=== PATIENT | female | born 1990 | race Caucasian/White ===

== ENCOUNTER → 2019-04-25 | Outpatient (CLI) | payer BC ==
[2019-04-25 13:30] LABS: Basophils # (auto) 0 uL; Basophils % (auto) 0.6 % (0.0-2.0); Eosinophils # (auto) 0.1 uL; Eosinophils % (auto) 0.8 % (0.0-7.0); Hematocrit 38.5 % (36.0-46.0); Hemoglobin 13.3 g/dL (12.2-16.2); Lymphocytes # (auto) 2.2 uL; Lymphocytes % (auto) 34.6 % (10.0-50.0); Mean Corpuscular Hemoglobin 28.6 pg (28.0-32.0); Mean Corpuscular Hgb Conc. 34.5 g/dL (32.0-36.0); Mean Corpuscular Volume 82.8 fL (80.0-100.0); Monocytes # (auto) 0.3 uL; Neutrophils # (auto) 3.7 uL; Platelet Count (auto) 165 10^3/uL (140-450); Red Blood Cells 4.65 10^6/uL (4.0-5.20); Red Cell Distribution Width 12.9 % (11.8-14.3); White Blood Cell 6.3 10^3/uL (4.4-10.8)
[2019-04-25 13:44] LABS: Potassium 4.4 mmol/L (3.5-5.1)
[2019-04-25 13:48] LABS: Urine Bacteria NONE SEEN /hpf (None Seen); Urine Blood Negative /uL (Negative); Urine Mucus FEW (None Seen); Urine WBC 22 /hpf (0 - 5)
[2019-04-25 14:00] LABS: Albumin 3.8 g/dL (3.4-5.0); BUN/Creatinine Ratio 18.6; Bilirubin, Total 0.4 mg/dL (0.2-1.0); Calcium 8.4 mg/dL (8.5-10.1); Total Protein 7.2 g/dL (6.4-8.2)
[2019-04-25 14:12] LABS: Thyroid Stimulating Hormone 2.41 uIU/mL (0.358-3.74)
== END | disposition home or self-care (01) ==
LOC: LAB 12:08
PROVIDERS: ATTEND Internal Medicine
DX: E03.9 Hypothyroidism, unspecified (principal); R42 Dizziness and giddiness; Z33.1 Pregnant state, incidental
CPT/HCPCS: 36415; 80053; 81001; 84439; 84443; 84702; 85025; 85652

== ENCOUNTER → 2019-05-30 | Outpatient (CLI) | payer BC ==
[2019-05-30 11:27] LABS: Basophils # (auto) 0 uL; Basophils % (auto) 0.3 % (0.0-2.0); Eosinophils # (auto) 0 uL; Eosinophils % (auto) 0.6 % (0.0-7.0); Hemoglobin 13.7 g/dL (12.2-16.2); Lymphocytes # (auto) 1.8 uL; Lymphocytes % (auto) 27.9 % (10.0-50.0); Mean Corpuscular Hemoglobin 28.5 pg (28.0-32.0); Mean Corpuscular Hgb Conc. 33.3 g/dL (32.0-36.0); Mean Corpuscular Volume 85.6 fL (80.0-100.0); Monocytes # (auto) 0.3 uL; Monocytes % (auto) 4.8 % (0.0-12.0); Neutrophils # (auto) 4.3 uL; Neutrophils % (auto) 66.4 % (37.0-80.0); Nucleated Red Blood Cells % 0.1 %; Platelet Count (auto) 160 10^3/uL (140-450); Red Blood Cells 4.79 10^6/uL (4.0-5.20); Red Cell Distribution Width 13.7 % (11.8-14.3); White Blood Cell 6.5 10^3/uL (4.4-10.8)
[2019-05-30 12:08] LABS: Thyroid Stimulating Hormone 2.26 uIU/mL (0.358-3.74)
[2019-05-30 12:20] LABS: Alcohol, Urine < 3.0 mg/dL (0-5); Amphetamine Screen, Urine NEGATIVE (NEGATIVE); Barbiturate Scree,Urine NEGATIVE (NEGATIVE); Benzodiazephine Screen, Urine NEGATIVE (NEGATIVE); Cannabinoid Screen, Urine NEGATIVE (NEGATIVE); Cocaine Screen, Urine NEGATIVE (NEGATIVE); Opiate Scree,Urine NEGATIVE (NEGATIVE); Phencyclidine Screen, Urine NEGATIVE (NEGATIVE)
[2019-05-31 10:27] LABS: RPR Non Reactive (Non Reactive)
== END | disposition home or self-care (01) ==
LOC: LAB 10:13
PROVIDERS: ATTEND Specialist
DX: Z11.3 Encounter for screening for infections with a predominantly sexual mode of transmission (principal); Z31.430 Encounter of female for testing for genetic disease carrier status for procreative management; N39.0 Urinary tract infection, site not specified; Z34.83 Encounter for supervision of other normal pregnancy, third trimester
CPT/HCPCS: 36415; 80307; 81220; 83036; 84112; 84443; 84702; 85025; 86592; 86703; 86762; 86850; 86900; 86901; 87086; 87340

== ENCOUNTER → 2019-08-16 | Outpatient (CLI) | payer BC | END | disposition home or self-care (01) | LOC: LAB 09:55 | PROVIDERS: ATTEND Specialist | DX: Z34.00 Encounter for supervision of normal first pregnancy, unspecified trimester (principal); Z3A.00 Weeks of gestation of pregnancy not specified | CPT/HCPCS: 36415; 84443 ==

== ENCOUNTER → 2019-09-19 | Outpatient (CLI) | payer BC ==
[2019-09-19 08:33] LABS: Basophils # (auto) 0 uL; Basophils % (auto) 0.3 % (0.0-2.0); Eosinophils # (auto) 0 uL; Eosinophils % (auto) 0.4 % (0.0-7.0); Hematocrit 39.8 % (36.0-46.0); Hemoglobin 13.5 g/dL (12.2-16.2); Lymphocytes # (auto) 1.4 uL; Lymphocytes % (auto) 21.8 % (10.0-50.0); Mean Corpuscular Hemoglobin 30.2 pg (28.0-32.0); Monocytes # (auto) 0.4 uL; Monocytes % (auto) 5.9 % (0.0-12.0); Neutrophils # (auto) 4.6 uL; Neutrophils % (auto) 71.6 % (37.0-80.0); Platelet Count (auto) 157 10^3/uL (140-450); Red Blood Cells 4.47 10^6/uL (4.0-5.20); Red Cell Distribution Width 13.9 % (11.8-14.3); White Blood Cell 6.4 10^3/uL (4.4-10.8)
== END | disposition home or self-care (01) ==
LOC: LAB 08:07
PROVIDERS: ATTEND Specialist
DX: O99.810 Abnormal glucose complicating pregnancy (principal); Z3A.25 25 weeks gestation of pregnancy
CPT/HCPCS: 36415; 82951; 85025; 86850; 86900; 86901

== ENCOUNTER → 2019-11-08 | Outpatient (CLI) | payer BC | END | disposition home or self-care (01) | LOC: LAB 09:30 | PROVIDERS: ATTEND Specialist | DX: Z34.83 Encounter for supervision of other normal pregnancy, third trimester (principal); Z3A.34 34 weeks gestation of pregnancy | CPT/HCPCS: 36415; 84443 ==

== ENCOUNTER → 2019-11-29 | Outpatient (CLI) | payer BC ==
[~2019-11-29] MED LIST: LEVO50TA7 PO; PREN-145 OR
[2019-11-29 11:46] LABS: Basophils # (auto) 0 10 ^3/uL (0-0.2); Basophils % (auto) 0.3 % (0.0-2.0); Eosinophils # (auto) 0 10 ^3/uL (0-0.8); Eosinophils % (auto) 0.6 % (0.0-7.0); Hemoglobin 13.9 g/dL (12.2-16.2); Lymphocytes % (auto) 28.1 % (10.0-50.0); Mean Corpuscular Hemoglobin 30.3 pg (28.0-32.0); Mean Corpuscular Hgb Conc. 33.8 g/dL (32.0-36.0); Mean Corpuscular Volume 89.6 fL (80.0-100.0); Monocytes # (auto) 0.5 10 ^3/uL (0-1.3); Monocytes % (auto) 6.4 % (0.0-12.0); Neutrophils # (auto) 4.6 10 ^3/uL (1.6-8.6); Neutrophils % (auto) 64.6 % (37.0-80.0); Nucleated Red Blood Cells % 0.1 %; Platelet Count (auto) 131 10^3/uL (140-450); Red Blood Cells 4.58 10^6/uL (4.0-5.20); Red Cell Distribution Width 13.1 % (11.8-14.3); White Blood Cell 7.2 10^3/uL (4.4-10.8)
[2019-11-30 04:06] LABS: RPR Non Reactive (Non Reactive)
== END | disposition home or self-care (01) ==
LOC: LAB 11:32
PROVIDERS: ATTEND Specialist
DX: Z34.83 Encounter for supervision of other normal pregnancy, third trimester (principal); N76.0 Acute vaginitis; Z3A.36 36 weeks gestation of pregnancy
CPT/HCPCS: 36415; 84112; 85025; 86592; 87081

== ENCOUNTER 2019-11-30 13:22 | Observation (INO) | payer BC | END 2019-11-30 14:15 | disposition home or self-care (01) | DRG 833 | LOC: LDRP 13:22 | PROVIDERS: ADMIT Obstetrics & Gynecology; ATTEND Obstetrics & Gynecology | DX: O36.5930 Maternal care for other known or suspected poor fetal growth, third trimester, not applicable or unspecified (principal); Z3A.37 37 weeks gestation of pregnancy | CPT/HCPCS: 76818; G0378; 59025; 81002 ==

== ENCOUNTER 2019-12-04 14:51 | Observation (INO) | payer BC ==
[2019-12-04] MEDS ORDERED: PREN-145 OR (16:00)
[2019-12-04] MEDS ORDERED: LEVO50TA7 PO (16:00)
== END 2019-12-04 16:15 | disposition home or self-care (01) | DRG 833 ==
LOC: LDRP 14:51
PROVIDERS: ADMIT Obstetrics & Gynecology; ATTEND Obstetrics & Gynecology
DX: O36.5930 Maternal care for other known or suspected poor fetal growth, third trimester, not applicable or unspecified (principal); Z3A.37 37 weeks gestation of pregnancy
CPT/HCPCS: 59025; 76818; 81002; G0378

== ENCOUNTER 2019-12-07 14:51 | Observation (INO) | payer BC | END 2019-12-07 16:55 | disposition home or self-care (01) | DRG 833 | LOC: LDRP 14:51 | PROVIDERS: ADMIT Specialist; ATTEND Specialist | DX: O36.5930 Maternal care for other known or suspected poor fetal growth, third trimester, not applicable or unspecified (principal); Z3A.38 38 weeks gestation of pregnancy | CPT/HCPCS: 59025; 76818; 81002; G0378 ==

== ENCOUNTER 2019-12-11 14:42 | Observation (INO) | payer BC | END 2019-12-11 15:30 | disposition home or self-care (01) | DRG 833 | LOC: LDRP 14:42 | PROVIDERS: ADMIT Obstetrics & Gynecology; ATTEND Obstetrics & Gynecology | DX: O36.5930 Maternal care for other known or suspected poor fetal growth, third trimester, not applicable or unspecified (principal); Z3A.38 38 weeks gestation of pregnancy | CPT/HCPCS: 59025; 76818; 81002; G0378 ==

== ENCOUNTER 2019-12-13 07:00 | Inpatient (IN) | payer BC ==
[~2019-12-13] VITALS: Ht 162.6 cm; Wt 64.4 kg
[2019-12-13] MEDS ORDERED: LACT. RINGERS/OXYTOCIN 20UNITS 1,000 ML IV SCH (07:05)
[2019-12-13] MEDS ORDERED: DERMOPLAST 60ML BOTTLE TOP PRN (07:15)
[2019-12-13] MEDS ORDERED: LIDOCAINE 2%HCL (LOCAL ANESTH.) INJ 20ML MDV ID PRN (07:15)
[2019-12-13] MEDS ORDERED: METHYLERGONOVINE MALEATE 0.2 MG/ML AMP IM PRN (07:15)
[2019-12-13] MEDS ORDERED: PHISODERM TOP SOLN 240ML BTL TOP PRN (07:15)
[2019-12-13] MEDS ORDERED: WITCH HAZEL-GLYCERIN PAD TOP PRN (07:15)
[2019-12-13] MEDS ORDERED: miSOPROStol 50 MCG per PRE-CUT 1/2 TAB PO PRN (07:45)
[2019-12-13 07:48] LABS: Basophils # (auto) 0 10 ^3/uL (0-0.2); Basophils % (auto) 0.3 % (0.0-2.0); Eosinophils # (auto) 0 10 ^3/uL (0-0.8); Eosinophils % (auto) 0.6 % (0.0-7.0); Hematocrit 44.6 % (36.0-46.0); Hemoglobin 15.1 g/dL (12.2-16.2); Lymphocytes # (auto) 2.2 10 ^3/uL (0.4-5.4); Lymphocytes % (auto) 28.1 % (10.0-50.0); Mean Corpuscular Hemoglobin 30.6 pg (28.0-32.0); Mean Corpuscular Hgb Conc. 33.8 g/dL (32.0-36.0); Mean Corpuscular Volume 90.7 fL (80.0-100.0); Monocytes # (auto) 0.3 10 ^3/uL (0-1.3); Monocytes % (auto) 4.4 % (0.0-12.0); Neutrophils # (auto) 5.2 10 ^3/uL (1.6-8.6); Neutrophils % (auto) 66.6 % (37.0-80.0); Nucleated Red Blood Cells % 0.1 %; Platelet Count (auto) 157 10^3/uL (140-450); Red Blood Cells 4.92 10^6/uL (4.0-5.20); Red Cell Distribution Width 13.4 % (11.8-14.3); White Blood Cell 7.8 10^3/uL (4.4-10.8)
[2019-12-13 07:53] LABS: Urine Bacteria FEW /hpf (None Seen); Urine Blood Negative /uL (Negative); Urine Mucus FEW (None Seen); Urine WBC <1 /hpf (0 - 5)
[2019-12-13 08:01] LABS: INR 0.91 (0.9-1.15); Partial Thromboplastin Time 26.3 sec (23.64-32.05)
[2019-12-13 08:05] LABS: Calcium 8.8 mg/dL (8.5-10.1); Potassium 4.2 mmol/L (3.5-5.1)
[2019-12-13 08:08] LABS: Alcohol, Urine < 3.0 mg/dL (0-5); Amphetamine Screen, Urine NEGATIVE (NEGATIVE); Barbiturate Scree,Urine NEGATIVE (NEGATIVE); Benzodiazephine Screen, Urine NEGATIVE (NEGATIVE); Cannabinoid Screen, Urine NEGATIVE (NEGATIVE); Cocaine Screen, Urine NEGATIVE (NEGATIVE); Opiate Scree,Urine NEGATIVE (NEGATIVE); Phencyclidine Screen, Urine NEGATIVE (NEGATIVE)
[2019-12-13 08:08] LABS: BUN/Creatinine Ratio 15.1; Bilirubin, Total 0.4 mg/dL (0.2-1.0); Total Protein 7.4 g/dL (6.4-8.2)
[2019-12-13] MEDS: LACTATED RINGER'S 1,000 ML IV SCH ×2 (08:25→10:52)
[2019-12-13] MEDS ORDERED: LEVOTHYROXINE SODIUM 25 MCG TAB PO SCH (10:00)
[2019-12-13] MEDS ORDERED: LEVOTHYROXINE SODIUM 50 MCG TAB PO SCH (10:00)
[2019-12-13] MEDS ORDERED: ePHEDrine SULFATE 50 MG/ML AMP IV ONE ×2 (10:45→12:15)
[2019-12-13] MEDS ORDERED: LIDOCAINE HCL 2 %PF INJ 10ML AMP IJ ONE (10:45)
[2019-12-13] MEDS ORDERED: NALOXONE HCL 0.4 MG/ML VIAL IV ONE ×2 (10:45→12:15)
[2019-12-13] MEDS ORDERED: fentaNYL 200mCg/100ml W ROPIVA 100 ML EPI SCH ×2 (10:45→12:15)
[2019-12-13] MEDS ORDERED: fentaNYL CITRATE 100 MCG/2 ML VL IV ONE (10:45)
[2019-12-13] MEDS ORDERED: LACTATED RINGER'S 500 ML IV ONE (12:12)
[2019-12-13] MEDS ORDERED: SODIUM CHLORIDE 0.9% 500 ML IV PRN (12:12)
[2019-12-13] MEDS ORDERED: RHO (D) IMMUNE GLOBULIN 300 MCG INJ IM ONE (16:00)
[2019-12-13] MEDS ORDERED: ACETAMINOPHEN 325 MG TAB PO PRN (16:15)
--- NOTE | 2019-12-13 16:50 | NUR ---
Teaching: Reviewed information in [facility] booklet with patient. Discussed benefits of and risks associated with not . Discussed different positions, proper latch, feeding cues, and baby-led . Discussed using hospital breast pump to pump milk for infant during their time apart. Patient verbalizes understanding, Continued care.
--- NOTE | 2019-12-13 16:56 | NUR ---
[id number] [facility]. Answered any and all questions and concerns patient and spouse had.
--- NOTE | 2019-12-13 17:12 | NUR ---
Copy of PP depression scale provided to complete
[2019-12-13 17:39] VITALS: BP 112/61
--- NOTE | 2019-12-13 17:50 | NUR ---
Ambulation: Patient OOB with standby assistance by RN. Patient ambulated to bathroom with steady gait. Patient able to void without difficulty. [facility] teaching provided with returned demonstration by patient, patient voided 400 ml of urine. Clean gown provided and N95 mask provided and pt trasported to [facility] room 1 . Patient ambulated back to bed with steady gait and no distress noted.
[2019-12-13 19:00] VITALS: BP 105/62
[2019-12-13] MEDS ORDERED: diphenhdrAMINE HCL 25 MG CAP PO ONE (20:15)
[2019-12-13 23:00] VITALS: BP 107/54
[2019-12-14 03:28] VITALS: BP 91/51
[2019-12-14 06:07] LABS: RPR Non Reactive (Non Reactive)
[2019-12-14 07:00] VITALS: BP 100/59
[2019-12-14] MEDS ORDERED: LEVOTHYROXINE SODIUM 50 MCG TAB PO SCH (07:00)
[2019-12-14] MEDS: IBUPROFEN 600 MG TAB PO PRN ×2 (08:47→16:26)
[2019-12-14] MEDS ORDERED: TETANUS-DIPTH-ACEL PERTUSSIS 0.5ML SYR Tdap IM ONE (10:00)
[2019-12-14] MEDS ORDERED: MEASLES, MUMPS & RUBELLA VAC(MMRII) 0.5ML SC ONE (10:00)
[2019-12-14] MEDS ORDERED: DOCUSATE CALCIUM 240 MG CAP PO SCH (10:00)
[2019-12-14 11:09] VITALS: BP 119/75
--- NOTE | 2019-12-14 14:55 | NUR ---
Received positive COVID test for patient. Called Keyana Jeffrey Director of [facility]. Informed of second positive COVID test. Verbalized understanding. Stated to call flight simulator teacher. Laly Dill called. Informed of Covid results. Given patient name, medical record number, phone number [phone]. Informed patient is to be discharged home tonight, will be going home with grandmother to a separate house for two weeks for isolation. was swabbed for covid at 1530, sent to lab. Results to processed at 0800. Verbalized understanding. Stated to call Dr Medina to inform of positive result. Dr Medina called. Stated to have patient return for follow up appointment after a covid screening has come back negative, and if patient is nonsymptomatic. Jane Dill called. Informed of information. Stated she will contact Marlyn Camejo regarding Dr Medina's wishes. Informed patient's primary care physician is Dr Viktor King of medical group. Verbalized understanding. Stated to inform patient to self quarantine for 14 days, the hospital will be contacting the patient regarding when and where to have COVID rescreen and when to f/u with Dr medina. Patient will most likely go to urgent care for COVID rescreen. of patient needs to be encouraged to be screened for COVID as well. may go to the ER now to be screened in house.
[2019-12-14 15:00] VITALS: BP 103/63
--- NOTE | 2019-12-14 17:00 | NUR ---
IV in left forearm dc'd per policy. Patient tolerated well. Cath intact. Pressure dressing placed to site.
--- NOTE | 2019-12-14 18:00 | NUR ---
discharge paperwork reviewed with patient and significant other. Ana Villafana will call patient by Tuesday regarding when to return to urgent care for a follow up COVID screen. When the screen comes back negative, call Dr Herrera's office to schedule a follow up appointment no longer than four weeks after discharge. Educated on second positive test for COVID, reviewed and given home isolation instruction for novel coronavirus 2019. Verbalized understanding of all information. Educated on CDC's recommendation to isolate for 14 days from infant to reduce the risk of spreading covid to the . Encouraged FOB to screened for COVID. Appointment has been made for father of infant to be screened tomorrow in the urgent care in the am. Verbalized understanding. All questions and concerns addressed.
--- NOTE | 2019-12-14 19:06 | NUR ---
Discharge: Patient ambulated off unit with all personal belongings, discharge paperwork in hand accompanied by staff and family member. No distress noted at time of departure, no adverse changes in status since initial assessment.
== END 2019-12-14 19:05 | disposition home or self-care (01) | DRG 805 ==
LOC: OBSVTOIN 07:00 → LDRP 07:00
PROVIDERS: ADMIT Specialist; ATTEND Specialist
PROC: 10E0XZZ Delivery of Products of Conception, External Approach (ICD-10-PCS; principal; 2019-12-13)
PROC: 0W8NXZZ Division of Female Perineum, External Approach (ICD-10-PCS; 2019-12-13)
PROC: 3E0234Z Introduction of Serum, Toxoid and Vaccine into Muscle, Percutaneous Approach (ICD-10-PCS; 2019-12-13)
PROC: 3E0R3BZ Introduction of Anesthetic Agent into Spinal Canal, Percutaneous Approach (ICD-10-PCS; 2019-12-13)
PROC: 00HU33Z Insertion of Infusion Device into Spinal Canal, Percutaneous Approach (ICD-10-PCS; 2019-12-13)
DX: O36.5930 Maternal care for other known or suspected poor fetal growth, third trimester, not applicable or unspecified (principal); U07.1 COVID-19; Z37.0 Single live birth; O98.52 Other viral diseases complicating childbirth; O26.893 Other specified pregnancy related conditions, third trimester; Z67.21 Type B blood, Rh negative; Z3A.39 39 weeks gestation of pregnancy
CPT/HCPCS: 36415; 59025; 59409; 80053; 80307; 81001; 84112; 85025; 85610; 85730; 86592; 86850; 86900; 86901; 90384; 90471; 96365; 96366; 96372; G0378; J2590

== ENCOUNTER → 2019-12-31 | Outpatient (CLI) | payer BC | END | disposition home or self-care (01) | LOC: LAB 12:16 | PROVIDERS: ATTEND Physician Assistant | DX: Z03.818 Encounter for observation for suspected exposure to other biological agents ruled out (principal) | CPT/HCPCS: 87635 ==

== ENCOUNTER → 2020-11-20 | Outpatient (CLI) | payer BC ==
[2020-11-20 09:41] LABS: Basophils # (auto) 0 10 ^3/uL (0-0.2); Basophils % (auto) 0.6 % (0.0-2.0); Eosinophils # (auto) 0.1 10 ^3/uL (0-0.8); Hematocrit 40.6 % (36.0-46.0); Monocytes # (auto) 0.3 10 ^3/uL (0-1.3); Nucleated Red Blood Cells % 0.1 %
[2020-11-20 09:42] LABS: Urine Bacteria NONE SEEN /hpf (None Seen); Urine Blood 2+ /uL (Negative); Urine WBC 14 /hpf (0 - 5)
[2020-11-20 09:54] LABS: Eosinophils % (auto) 2.4 % (0.0-7.0); Hemoglobin 13.8 g/dL (12.2-16.2); Lymphocytes # (auto) 2.3 10 ^3/uL (0.4-5.4); Mean Corpuscular Hemoglobin 28.2 pg (28.0-32.0); Mean Corpuscular Volume 82.9 fL (80.0-100.0); Monocytes % (auto) 5.9 % (0.0-12.0); Neutrophils # (auto) 2.9 10 ^3/uL (1.6-8.6); Neutrophils % (auto) 51.1 % (37.0-80.0); Platelet Count (auto) 191 10^3/uL (140-450); Red Blood Cells 4.89 10^6/uL (4.0-5.20); Red Cell Distribution Width 12.6 % (11.8-14.3); White Blood Cell 5.6 10^3/uL (4.4-10.8)
[2020-11-20 10:27] LABS: Albumin 3.8 g/dL (3.4-5.0); Calcium 9.1 mg/dL (8.5-10.1); Potassium 4.3 mmol/L (3.5-5.1)
[2020-11-20 10:30] LABS: BUN/Creatinine Ratio 23.7; Bilirubin, Total 0.7 mg/dL (0.2-1.0); Total Protein 7.1 g/dL (6.4-8.2)
== END | disposition home or self-care (01) ==
LOC: LAB 09:20
PROVIDERS: ATTEND Internal Medicine
DX: K21.9 Gastro-esophageal reflux disease without esophagitis (principal); R07.89 Other chest pain
CPT/HCPCS: 36415; 80053; 81001; 82150; 83690; 84702; 85025; 85652; 86677

== ENCOUNTER 2021-06-14 18:24 | Emergency (ER) | payer BC ==
[~2021-06-14] VITALS: Ht 162.6 cm; Wt 57.2 kg
[2021-06-14 18:26] VITALS: BP 106/54
[2021-06-14 19:06] LABS: Basophils # (auto) 0 10 ^3/uL (0-0.2); Basophils % (auto) 0.4 % (0.0-2.0); Eosinophils # (auto) 0.1 10 ^3/uL (0-0.8); Eosinophils % (auto) 1.4 % (0.0-7.0); Hematocrit 41.2 % (36.0-46.0); Hemoglobin 13.4 g/dL (12.2-16.2); Lymphocytes # (auto) 2.6 10 ^3/uL (0.4-5.4); Lymphocytes % (auto) 38.6 % (10.0-50.0); Mean Corpuscular Hemoglobin 27.4 pg (28.0-32.0); Mean Corpuscular Hgb Conc. 32.6 g/dL (32.0-36.0); Monocytes # (auto) 0.4 10 ^3/uL (0-1.3); Monocytes % (auto) 5.6 % (0.0-12.0); Neutrophils # (auto) 3.6 10 ^3/uL (1.6-8.6); Red Blood Cells 4.91 10^6/uL (4.0-5.20); Red Cell Distribution Width 12.9 % (11.8-14.3); White Blood Cell 6.6 10^3/uL (4.4-10.8)
[2021-06-14 19:25] LABS: Albumin 3.8 g/dL (3.4-5.0); Calcium 9.2 mg/dL (8.5-10.1); Magnesium 2.5 mg/dL (1.6-2.6); Potassium 5.1 mmol/L (3.5-5.1)
[2021-06-14 19:26] LABS: Bilirubin, Total 0.3 mg/dL (0.2-1.0); Total Protein 7.1 g/dL (6.4-8.2)
[2021-06-14 21:26] LABS: Urine Bacteria FEW /hpf (None Seen); Urine Blood Negative /uL (Negative); Urine Specific Gravity 1.011 (1.001-1.035); Urine WBC 2 /hpf (0 - 5)
== END 2021-06-15 04:50 | disposition left against medical advice (07) ==
LOC: ER 18:25
DX: R10.9 Unspecified abdominal pain (principal); K92.1 Melena; Z53.21 Procedure and treatment not carried out due to patient leaving prior to being seen by health care provider
CPT/HCPCS: 36415; 80053; 81001; 83735; 85025

== ENCOUNTER → 2021-06-22 | Outpatient (CLI) | payer BC ==
[2021-06-22 10:46] LABS: Basophils # (auto) 0 10 ^3/uL (0-0.2); Basophils % (auto) 0.6 % (0.0-2.0); Eosinophils # (auto) 0.1 10 ^3/uL (0-0.8); Hematocrit 40.1 % (36.0-46.0); Hemoglobin 13.7 g/dL (12.2-16.2); Lymphocytes # (auto) 2.3 10 ^3/uL (0.4-5.4); Lymphocytes % (auto) 41.7 % (10.0-50.0); Mean Corpuscular Hemoglobin 28.6 pg (28.0-32.0); Mean Corpuscular Hgb Conc. 34.3 g/dL (32.0-36.0); Mean Corpuscular Volume 83.6 fL (80.0-100.0); Monocytes # (auto) 0.3 10 ^3/uL (0-1.3); Monocytes % (auto) 5.6 % (0.0-12.0); Neutrophils # (auto) 2.8 10 ^3/uL (1.6-8.6); Neutrophils % (auto) 51.1 % (37.0-80.0); Nucleated Red Blood Cells % 0.1 %; White Blood Cell 5.4 10^3/uL (4.4-10.8)
[2021-06-22 11:28] LABS: Potassium 3.7 mmol/L (3.5-5.1)
[2021-06-22 11:39] LABS: Albumin 3.9 g/dL (3.4-5.0); BUN/Creatinine Ratio 18.7; Bilirubin, Total 0.8 mg/dL (0.2-1.0); Calcium 8.9 mg/dL (8.5-10.1); Total Protein 7.2 g/dL (6.4-8.2)
== END | disposition home or self-care (01) ==
LOC: LAB 10:17
PROVIDERS: ATTEND Internal Medicine
DX: K92.2 Gastrointestinal hemorrhage, unspecified (principal)
CPT/HCPCS: 36415; 80053; 85025

== ENCOUNTER → 2021-09-11 | Day surgery (SDC) | payer BC ==
[2021-09-08 10:23] LABS: Urine Bacteria NONE SEEN /hpf (None Seen); Urine Blood Negative /uL (Negative); Urine Mucus FEW (None Seen); Urine Specific Gravity 1.029 (1.001-1.035); Urine WBC 1 /hpf (0 - 5)
[2021-09-08 12:45] LABS: Potassium 3.9 mmol/L (3.5-5.1)
[2021-09-08 12:49] LABS: Albumin 3.8 g/dL (3.4-5.0); BUN/Creatinine Ratio 24.3
[2021-09-08 12:52] LABS: Bilirubin, Total 0.5 mg/dL (0.2-1.0); Total Protein 7.2 g/dL (6.4-8.2)
[2021-09-08 12:57] LABS: Basophils # (auto) 0 10 ^3/uL (0-0.2); Basophils % (auto) 0.4 % (0.0-2.0); Eosinophils # (auto) 0.1 10 ^3/uL (0-0.8); Eosinophils % (auto) 1.2 % (0.0-7.0); Hematocrit 41.3 % (36.0-46.0); Hemoglobin 13.5 g/dL (12.2-16.2); Lymphocytes # (auto) 2.2 10 ^3/uL (0.4-5.4); Lymphocytes % (auto) 35.5 % (10.0-50.0); Mean Corpuscular Hemoglobin 27.3 pg (28.0-32.0); Mean Corpuscular Hgb Conc. 32.7 g/dL (32.0-36.0); Mean Corpuscular Volume 83.6 fL (80.0-100.0); Monocytes # (auto) 0.3 10 ^3/uL (0-1.3); Monocytes % (auto) 4.1 % (0.0-12.0); Neutrophils # (auto) 3.6 10 ^3/uL (1.6-8.6); Neutrophils % (auto) 58.8 % (37.0-80.0); Nucleated Red Blood Cells % 0.1 %; Red Blood Cells 4.94 10^6/uL (4.0-5.20); Red Cell Distribution Width 13.3 % (11.8-14.3); White Blood Cell 6.2 10^3/uL (4.4-10.8)
[~2021-09-11] VITALS: Ht 167.6 cm; Wt 55.3 kg
[~2021-09-11] MED LIST changes: -LEVO50TA7 PO; +MIDAZOLAM HCL 2MG/2ML 2ml VIAL (1mg/ml) ONE; +MORPHINE SULFATE 4 MG/ML SYR/VIAL IV PRN; +ONDANSETRON HCL 4 MG/2 ML VIAL IV PRN; -PREN-145 OR; +PROPOFOL 10 MG/ML 20 ML IV ONE
[2021-09-11 16:00] VITALS: BP 102/63
== END | disposition home or self-care (01) ==
LOC: GI 12:08
PROVIDERS: ATTEND Internal Medicine Gastroenterology
DX: R10.13 Epigastric pain (principal); K62.5 Hemorrhage of anus and rectum; K29.50 Unspecified chronic gastritis without bleeding; K44.9 Diaphragmatic hernia without obstruction or gangrene; K63.5 Polyp of colon; K64.8 Other hemorrhoids; E03.9 Hypothyroidism, unspecified; Z20.822 Contact with and (suspected) exposure to COVID-19
CPT/HCPCS: 36415; 43239; 45380; 80053; 81001; 81025; 84702; 85025; 88305; 88342; J2250; J2704; J7030; U0003; 99152; 99153

== ENCOUNTER → 2021-11-16 | Outpatient (CLI) | payer BC ==
[2021-11-16 10:01] LABS: Basophils # (auto) 0 10 ^3/uL (0-0.2); Basophils % (auto) 0.2 % (0.0-2.0); Eosinophils # (auto) 0 10 ^3/uL (0-0.8); Eosinophils % (auto) 0.8 % (0.0-7.0); Hematocrit 37.9 % (36.0-46.0); Lymphocytes # (auto) 1.8 10 ^3/uL (0.4-5.4); Mean Corpuscular Hemoglobin 28.3 pg (28.0-32.0); Mean Corpuscular Hgb Conc. 34.2 g/dL (32.0-36.0); Mean Corpuscular Volume 82.8 fL (80.0-100.0); Monocytes # (auto) 0.3 10 ^3/uL (0-1.3); Monocytes % (auto) 5.1 % (0.0-12.0); Neutrophils # (auto) 3.2 10 ^3/uL (1.6-8.6); Neutrophils % (auto) 59.9 % (37.0-80.0); Nucleated Red Blood Cells % 0.1 %; Red Blood Cells 4.57 10^6/uL (4.0-5.20); Red Cell Distribution Width 14.1 % (11.8-14.3); White Blood Cell 5.3 10^3/uL (4.4-10.8)
[2021-11-16 10:04] LABS: Urine Bacteria FEW /hpf (None Seen); Urine Blood Negative /uL (Negative); Urine Hyaline Cast FEW /lpf (0 - 2); Urine Specific Gravity 1.017 (1.001-1.035); Urine WBC 30 /hpf (0 - 5)
[2021-11-16 10:31] LABS: Potassium 4.1 mmol/L (3.5-5.1)
[2021-11-16 10:35] LABS: Albumin 3.6 g/dL (3.4-5.0); BUN/Creatinine Ratio 21.6; Bilirubin, Total 0.4 mg/dL (0.2-1.0)
[2021-11-16 10:49] LABS: Thyroid Stimulating Hormone 4.25 uIU/mL (0.358-3.74)
== END | disposition home or self-care (01) ==
LOC: LAB 09:13
PROVIDERS: ATTEND Internal Medicine
DX: N91.2 Amenorrhea, unspecified (principal); R31.9 Hematuria, unspecified
CPT/HCPCS: 36415; 80053; 81001; 84439; 84443; 84702; 85025

== ENCOUNTER → 2021-12-22 | Outpatient (CLI) | payer BC ==
[2021-12-22 08:52] LABS: Basophils # (auto) 0 10 ^3/uL (0-0.2); Basophils % (auto) 0.4 % (0.0-2.0); Eosinophils # (auto) 0.1 10 ^3/uL (0-0.8); Eosinophils % (auto) 0.9 % (0.0-7.0); Hematocrit 38.1 % (36.0-46.0); Hemoglobin 13.3 g/dL (12.2-16.2); Lymphocytes # (auto) 1.9 10 ^3/uL (0.4-5.4); Lymphocytes % (auto) 31.6 % (10.0-50.0); Mean Corpuscular Hemoglobin 29.4 pg (28.0-32.0); Mean Corpuscular Volume 84.2 fL (80.0-100.0); Monocytes # (auto) 0.3 10 ^3/uL (0-1.3); Monocytes % (auto) 5.4 % (0.0-12.0); Neutrophils # (auto) 3.7 10 ^3/uL (1.6-8.6); Neutrophils % (auto) 61.7 % (37.0-80.0); Nucleated Red Blood Cells % 0.1 %; Red Blood Cells 4.52 10^6/uL (4.0-5.20); Red Cell Distribution Width 14.8 % (11.8-14.3)
[2021-12-22 09:47] LABS: Alcohol, Urine < 3.0 mg/dL (0-10); Amphetamine Screen, Urine NEGATIVE (NEGATIVE); Barbiturate Scree,Urine NEGATIVE (NEGATIVE); Benzodiazephine Screen, Urine NEGATIVE (NEGATIVE); Cannabinoid Screen, Urine NEGATIVE (NEGATIVE); Cocaine Screen, Urine NEGATIVE (NEGATIVE); Opiate Scree,Urine NEGATIVE (NEGATIVE); Phencyclidine Screen, Urine NEGATIVE (NEGATIVE)
[2021-12-23 07:06] LABS: RPR Non Reactive (Non Reactive)
== END | disposition home or self-care (01) ==
LOC: LAB 07:50
PROVIDERS: ATTEND Obstetrics & Gynecology Obstetrics
DX: Z34.80 Encounter for supervision of other normal pregnancy, unspecified trimester (principal); Z36.0 Encounter for antenatal screening for chromosomal anomalies; Z31.430 Encounter of female for testing for genetic disease carrier status for procreative management; N39.0 Urinary tract infection, site not specified
CPT/HCPCS: 36415; 80307; 83036; 84112; 84144; 84436; 84702; 85025; 86592; 86703; 86762; 86850; 86900; 86901; 87086

== ENCOUNTER → 2022-01-11 | Outpatient (CLI) | payer BC | END | disposition home or self-care (01) | LOC: LAB 09:10 | PROVIDERS: ATTEND Obstetrics & Gynecology Obstetrics | DX: Z34.80 Encounter for supervision of other normal pregnancy, unspecified trimester (principal); Z36.0 Encounter for antenatal screening for chromosomal anomalies | CPT/HCPCS: 36415; 84436; 84443 ==

== ENCOUNTER 2022-02-03 17:54 | Emergency (ER) | payer BC ==
[~2022-02-03] VITALS: Ht 160 cm; Wt 59.0 kg
[2022-02-03 18:01] VITALS: BP 100/52
[2022-02-03 20:04] LABS: Basophils # (auto) 0 10 ^3/uL (0-0.2); Basophils % (auto) 0.3 % (0.0-2.0); Eosinophils # (auto) 0 10 ^3/uL (0-0.8); Eosinophils % (auto) 0.5 % (0.0-7.0); Hematocrit 41.7 % (36.0-46.0); Lymphocytes # (auto) 1.8 10 ^3/uL (0.4-5.4); Lymphocytes % (auto) 21.9 % (10.0-50.0); Mean Corpuscular Hemoglobin 28.6 pg (28.0-32.0); Mean Corpuscular Hgb Conc. 33.7 g/dL (32.0-36.0); Monocytes # (auto) 0.3 10 ^3/uL (0-1.3); Monocytes % (auto) 4.2 % (0.0-12.0); Neutrophils # (auto) 6.1 10 ^3/uL (1.6-8.6); Neutrophils % (auto) 73.1 % (37.0-80.0); Nucleated Red Blood Cells % 0.2 %; Red Cell Distribution Width 13.9 % (11.8-14.3); White Blood Cell 8.3 10^3/uL (4.4-10.8)
[2022-02-03 20:17] LABS: Albumin 3.4 g/dL (3.4-5.0); Calcium 8.9 mg/dL (8.5-10.1); Potassium 4.4 mmol/L (3.5-5.1)
[2022-02-03 20:22] LABS: Bilirubin, Total 0.3 mg/dL (0.2-1.0); Total Protein 7.2 g/dL (6.4-8.2)
[2022-02-03 20:36] LABS: Thyroid Stimulating Hormone 3.66 uIU/mL (0.358-3.74)
[2022-02-03 21:40] LABS: Urine Amorphous Crystal FEW /hpf (None Seen); Urine Bacteria FEW /hpf (None Seen); Urine Blood Negative /uL (Negative); Urine Mucus FEW (None Seen); Urine Specific Gravity 1.022 (1.001-1.035); Urine WBC 4 /hpf (0 - 5)
[2022-02-03] MEDS ORDERED: NITR-87 PO (22:16)
== END 2022-02-03 22:26 | disposition home or self-care (01) ==
LOC: ER 17:54
DX: O26.891 Other specified pregnancy related conditions, first trimester (principal); R55 Syncope and collapse; O23.41 Unspecified infection of urinary tract in pregnancy, first trimester; Z3A.01 Less than 8 weeks gestation of pregnancy
CPT/HCPCS: 36415; 80053; 81001; 84443; 84484; 84702; 85025

== ENCOUNTER → 2022-02-18 | Outpatient (CLI) | payer BC ==
[~2022-02-18] MED LIST changes: -MIDAZOLAM HCL 2MG/2ML 2ml VIAL (1mg/ml) ONE; -MORPHINE SULFATE 4 MG/ML SYR/VIAL IV PRN; +NITR-87 PO; -ONDANSETRON HCL 4 MG/2 ML VIAL IV PRN; -PROPOFOL 10 MG/ML 20 ML IV ONE
[2022-02-18 08:38] LABS: Urine Bacteria MANY /hpf (None Seen); Urine Blood Negative /uL (Negative); Urine Specific Gravity 1.017 (1.001-1.035); Urine WBC 77 /hpf (0 - 5)
== END | disposition home or self-care (01) ==
LOC: LAB 08:19
PROVIDERS: ATTEND Internal Medicine
DX: I10 Essential (primary) hypertension (principal); Z87.898 Personal history of other specified conditions
CPT/HCPCS: 36415; 81001; 85379

== ENCOUNTER → 2022-03-09 | Outpatient (CLI) | payer BC | END | disposition home or self-care (01) | LOC: LAB 12:45 | PROVIDERS: ATTEND Obstetrics & Gynecology Obstetrics | DX: Z34.80 Encounter for supervision of other normal pregnancy, unspecified trimester (principal) | CPT/HCPCS: 36415; 84436; 84443; 87340 ==

== ENCOUNTER → 2022-04-19 | Outpatient (CLI) | payer BC ==
[2022-04-19 08:57] LABS: Basophils # (auto) 0 10 ^3/uL (0-0.2); Basophils % (auto) 0.3 % (0.0-2.0); Eosinophils # (auto) 0 10 ^3/uL (0-0.8); Eosinophils % (auto) 0.7 % (0.0-7.0); Hematocrit 38.1 % (36.0-46.0); Hemoglobin 12.9 g/dL (12.2-16.2); Lymphocytes # (auto) 1.8 10 ^3/uL (0.4-5.4); Lymphocytes % (auto) 25.9 % (10.0-50.0); Mean Corpuscular Hemoglobin 30.4 pg (28.0-32.0); Mean Corpuscular Volume 89.5 fL (80.0-100.0); Monocytes # (auto) 0.4 10 ^3/uL (0-1.3); Monocytes % (auto) 5.4 % (0.0-12.0); Neutrophils # (auto) 4.8 10 ^3/uL (1.6-8.6); Neutrophils % (auto) 67.7 % (37.0-80.0); Red Blood Cells 4.26 10^6/uL (4.0-5.20); Red Cell Distribution Width 13.4 % (11.8-14.3); White Blood Cell 7.1 10^3/uL (4.4-10.8)
== END | disposition home or self-care (01) ==
LOC: LAB 08:36
PROVIDERS: ATTEND Obstetrics & Gynecology Obstetrics
DX: O99.810 Abnormal glucose complicating pregnancy (principal); Z3A.00 Weeks of gestation of pregnancy not specified
CPT/HCPCS: 36415; 82951; 84436; 84443; 85025

== ENCOUNTER → 2022-05-31 | Outpatient (CLI) | payer BC | END | disposition home or self-care (01) | LOC: LAB 08:45 | PROVIDERS: ATTEND Obstetrics & Gynecology Obstetrics | DX: Z34.80 Encounter for supervision of other normal pregnancy, unspecified trimester (principal); Z3A.00 Weeks of gestation of pregnancy not specified | CPT/HCPCS: 84436 ==

== ENCOUNTER 2022-06-06 15:28 | Observation (INO) | payer BC ==
[2022-06-06] MEDS ORDERED: PREN1TAB71 OR (17:25)
[2022-06-06] MEDS ORDERED: LEVO25TA6 PO (17:26)
== END 2022-06-06 17:45 | disposition home or self-care (01) ==
LOC: LDRP 15:28
PROVIDERS: ADMIT Obstetrics & Gynecology; ATTEND Obstetrics & Gynecology
DX: O62.9 Abnormality of forces of labor, unspecified (principal); O99.891 Other specified diseases and conditions complicating pregnancy; M54.9 Dorsalgia, unspecified; Z3A.35 35 weeks gestation of pregnancy
CPT/HCPCS: 59025; 81002; 94760; G0378

== ENCOUNTER → 2022-06-07 | Outpatient (CLI) | payer BC ==
[~2022-06-07] MED LIST changes: +LEVO25TA6 PO; +PREN1TAB71 OR
[2022-06-07 09:17] LABS: Basophils # (auto) 0 10 ^3/uL (0-0.2); Basophils % (auto) 0.1 % (0.0-2.0); Eosinophils # (auto) 0 10 ^3/uL (0-0.8); Eosinophils % (auto) 0.5 % (0.0-7.0); Hematocrit 40.3 % (36.0-46.0); Hemoglobin 13.7 g/dL (12.2-16.2); Lymphocytes % (auto) 25.7 % (10.0-50.0); Mean Corpuscular Hemoglobin 30.8 pg (28.0-32.0); Mean Corpuscular Volume 90.7 fL (80.0-100.0); Monocytes # (auto) 0.5 10 ^3/uL (0-1.3); Monocytes % (auto) 5.8 % (0.0-12.0); Neutrophils # (auto) 5.4 10 ^3/uL (1.6-8.6); Neutrophils % (auto) 67.9 % (37.0-80.0); Red Blood Cells 4.44 10^6/uL (4.0-5.20); Red Cell Distribution Width 12.8 % (11.8-14.3); White Blood Cell 7.9 10^3/uL (4.4-10.8)
[2022-06-08 08:06] LABS: RPR Non Reactive (Non Reactive)
== END | disposition home or self-care (01) ==
LOC: LAB 08:57
PROVIDERS: ATTEND Obstetrics & Gynecology Obstetrics
DX: Z34.80 Encounter for supervision of other normal pregnancy, unspecified trimester (principal); Z3A.00 Weeks of gestation of pregnancy not specified
CPT/HCPCS: 36415; 84436; 84443; 85025; 86592

== ENCOUNTER 2022-07-02 20:07 | Inpatient (IN) | payer BC ==
[~2022-07-02] VITALS: Ht 160 cm; Wt 64.9 kg
[2022-07-02] MEDS ORDERED: DERMOPLAST 60ML BOTTLE TOP PRN (21:15)
[2022-07-02] MEDS ORDERED: PHISODERM TOP SOLN 240ML BTL TOP PRN (21:15)
[2022-07-02] MEDS ORDERED: WITCH HAZEL-GLYCERIN PAD TOP PRN (21:15)
[2022-07-02] MEDS ORDERED: BUTORPHANOL TARTRATE 2 MG/1 ML VIAL IV PRN ×2 (21:15)
[2022-07-02] MEDS ORDERED: PROMETHAZINE HCL 25 MG/ML 1ML IM PRN (21:15)
[2022-07-02] MEDS ORDERED: LIDOCAINE 2%HCL (LOCAL ANESTH.) INJ 10ml MDV IJ PRN (21:15)
[2022-07-02 22:00] LABS: Basophils # (auto) 0 10 ^3/uL (0-0.2); Basophils % (auto) 0.3 % (0.0-2.0); Eosinophils # (auto) 0.1 10 ^3/uL (0-0.8); Eosinophils % (auto) 0.8 % (0.0-7.0); Hematocrit 39.6 % (36.0-46.0); Hemoglobin 13.3 g/dL (12.2-16.2); Lymphocytes # (auto) 2.3 10 ^3/uL (0.4-5.4); Lymphocytes % (auto) 28.1 % (10.0-50.0); Mean Corpuscular Hemoglobin 30.3 pg (28.0-32.0); Mean Corpuscular Hgb Conc. 33.7 g/dL (32.0-36.0); Monocytes # (auto) 0.5 10 ^3/uL (0-1.3); Monocytes % (auto) 5.6 % (0.0-12.0); Neutrophils # (auto) 5.3 10 ^3/uL (1.6-8.6); Neutrophils % (auto) 65.2 % (37.0-80.0); Red Cell Distribution Width 12.8 % (11.8-14.3); White Blood Cell 8.2 10^3/uL (4.4-10.8)
[2022-07-02 22:12] LABS: INR 0.92 (0.9-1.15); Partial Thromboplastin Time 28.8 sec (24.6-33.4)
[2022-07-02 22:20] LABS: Albumin 2.5 g/dL (3.4-5.0); BUN/Creatinine Ratio 20.5; Calcium 8.8 mg/dL (8.5-10.1); Potassium 3.8 mmol/L (3.5-5.1)
[2022-07-02 22:22] LABS: Bilirubin, Total 0.4 mg/dL (0.2-1.0); Total Protein 6.4 g/dL (6.4-8.2)
[2022-07-02] MEDS: miSOPROStol 50 MCG per PRE-CUT 1/2 TAB PO PRN (22:34)
[2022-07-02 23:14] LABS: Alcohol, Urine < 3.0 mg/dL (0-10); Amphetamine Screen, Urine NEGATIVE (NEGATIVE); Barbiturate Scree,Urine NEGATIVE (NEGATIVE); Benzodiazephine Screen, Urine NEGATIVE (NEGATIVE); Cannabinoid Screen, Urine NEGATIVE (NEGATIVE); Cocaine Screen, Urine NEGATIVE (NEGATIVE); Opiate Scree,Urine NEGATIVE (NEGATIVE); Phencyclidine Screen, Urine NEGATIVE (NEGATIVE)
[2022-07-02 23:20] LABS: Urine Bacteria FEW /hpf (None Seen); Urine Blood Negative /uL (Negative); Urine Specific Gravity 1.012 (1.001-1.035); Urine WBC <1 /hpf (0 - 5)
[2022-07-03] MEDS: LACTATED RINGER'S 1,000 ML IV SCH ×2 (00:44→06:14)
[2022-07-03] MEDS ORDERED: PROMETHAZINE HCL 25 MG/ML 1ML IV PRN (02:45)
[2022-07-03] MEDS: miSOPROStol 50 MCG per PRE-CUT 1/2 TAB PO PRN (03:42)
[2022-07-03] MEDS ORDERED: NALOXONE HCL 0.4 MG/ML VIAL IV ONE (06:30)
[2022-07-03] MEDS ORDERED: ePHEDrine SULFATE 50 MG/ML AMP IV ONE (06:30)
[2022-07-03] MEDS ORDERED: LACTATED RINGER'S 1,000 ML IV ONE (06:30)
[2022-07-03] MEDS ORDERED: fentaNYL CITRATE 100 MCG/2 ML VL IV ONE (06:30)
[2022-07-03] MEDS ORDERED: ROPIVACAINE HCL 200 ML EPI SCH (06:30)
[2022-07-03] MEDS ORDERED: LIDOCAINE HCL 2 %PF INJ 10ML AMP IJ ONE (06:30)
[2022-07-03] MEDS ORDERED: LIDOCAINE 2%HCL (LOCAL ANESTH.) INJ 20ML MDV ONE (06:54)
[2022-07-03] MEDS ORDERED: ACETAMINOPHEN 325 MG TAB PO PRN (07:30)
[2022-07-03] MEDS ORDERED: ONDANSETRON ODT 4 MG TAB PO PRN (07:30)
[2022-07-03] MEDS ORDERED: DOCUSATE SOD 100 MG CAP PO PRN (07:30)
[2022-07-03] MEDS ORDERED: LACT. RINGERS/OXYTOCIN 20UNITS 500 ML IV ONE ×2 (10:00→10:30)
[2022-07-03 11:00] VITALS: BP 140/62
[2022-07-03 15:00] VITALS: BP 105/62
[2022-07-03] MEDS: IBUPROFEN 800 MG TAB PO SCH ×2 (18:00→21:02)
[2022-07-03] MEDS ORDERED: RHO (D) IMMUNE GLOBULIN 300 MCG INJ IM ONE (18:30)
[2022-07-03 19:30] VITALS: BP 102/62
[2022-07-03 23:00] VITALS: BP 91/54
[2022-07-04] MEDS: IBUPROFEN 800 MG TAB PO SCH
[2022-07-04 03:18] VITALS: BP 82/42
[2022-07-04 05:06] LABS: RPR Non Reactive (Non Reactive)
[2022-07-04] MEDS ORDERED: LEVO25TA6 PO (06:48)
[2022-07-04] MEDS ORDERED: IBUP800T26 PO (06:48)
[2022-07-04 06:55] VITALS: BP 95/63
[2022-07-04] MEDS ORDERED: LEVOTHYROXINE SODIUM 25 MCG TAB PO ONE (07:15)
== END 2022-07-04 10:20 | disposition home or self-care (01) | DRG 807 ==
LOC: LDRP 20:07
PROVIDERS: ADMIT Obstetrics & Gynecology Obstetrics; ATTEND Obstetrics & Gynecology Obstetrics
PROC: 10E0XZZ Delivery of Products of Conception, External Approach (ICD-10-PCS; principal; 2022-07-03)
PROC: 0HQ9XZZ Repair Perineum Skin, External Approach (ICD-10-PCS; 2022-07-03)
PROC: 3E0234Z Introduction of Serum, Toxoid and Vaccine into Muscle, Percutaneous Approach (ICD-10-PCS; 2022-07-03)
DX: O99.284 Endocrine, nutritional and metabolic diseases complicating childbirth (principal); Z37.0 Single live birth; O69.81X0 Labor and delivery complicated by cord around neck, without compression, not applicable or unspecified; O70.0 First degree perineal laceration during delivery; E03.9 Hypothyroidism, unspecified; Z3A.39 39 weeks gestation of pregnancy; F32.A Depression, unspecified; O99.344 Other mental disorders complicating childbirth; F99 Mental disorder, not otherwise specified; O26.893 Other specified pregnancy related conditions, third trimester; Z67.21 Type B blood, Rh negative
CPT/HCPCS: 36415; 59025; 59409; 80053; 80307; 81001; 81002; 85025; 85610; 85730; 86592; 86850; 86870; 86900; 86901; 90384; 94760; 96360; 96361; 96372; 96374; 96375; G0378; J2590

== ENCOUNTER 2023-07-09 08:59 | Emergency (ER) | payer BC, MEDICAID ==
[~2023-07-09] VITALS: Ht 162.6 cm; Wt 57.3 kg
[~2023-07-09 08:59] MED LIST changes: +IBUP-1455 PO; -LEVO25TA6 PO; -NITR-87 PO
[2023-07-09 09:40] LABS: Urine Bacteria NONE SEEN /hpf (None Seen); Urine Blood Negative /uL (Negative); Urine Clarity Clear (Clear); Urine Color Yellow (Yellow); Urine Mucus FEW (None Seen); Urine Protein, UAD Negative (Negative); Urine Specific Gravity 1.025 (1.001-1.035); Urine Urobilinogen Normal (Negative); Urine WBC 1 /hpf (0 - 5); Urine pH 5.5 (5.0-8.0)
[2023-07-09 09:52] LABS: Basophils # (auto) 0 10 ^3/uL (0-0.2); Basophils % (auto) 0.4 % (0.0-2.0); Eosinophils # (auto) 0 10 ^3/uL (0-0.8); Eosinophils % (auto) 0.9 % (0.0-7.0); Hematocrit 39.1 % (36.0-46.0); Lymphocytes % (auto) 47.3 % (10.0-50.0); Mean Corpuscular Hemoglobin 27.9 pg (28.0-32.0); Mean Corpuscular Hgb Conc. 33.4 g/dL (32.0-36.0); Mean Corpuscular Volume 83.6 fL (80.0-100.0); Monocytes # (auto) 0.2 10 ^3/uL (0-1.3); Monocytes % (auto) 4.2 % (0.0-12.0); Neutrophils % (auto) 47.2 % (37.0-80.0); Nucleated Red Blood Cells % 0.1 %; Red Blood Cells 4.67 10^6/uL (4.0-5.20); Red Cell Distribution Width 13.2 % (11.8-14.3); White Blood Cell 4.2 10^3/uL (4.4-10.8)
[2023-07-09 10:13] LABS: Alanine Aminotransferase 15 U/L (7-40); Albumin 4.5 g/dL (3.2-4.8); Alkaline Phosphatase 72 U/L (46-116); Anion Gap 6 (5-15); Aspartate Aminotransferase 15 U/L (13-40); BUN/Creatinine Ratio 15.3 (10.0-20.0); Blood Urea Nitrogen 11 mg/dL (9-23); Calcium 9.4 mg/dL (8.5-10.1); Carbon Dioxide 27 mmol/L (20-30); Chloride 108 mmol/L (98-107); Glucose 91 mg/dL (74-106); Potassium 4.1 mmol/L (3.5-5.1); Sodium 141 mmol/L (136-145)
[2023-07-09 10:14] LABS: Bilirubin, Total 0.5 mg/dL (0.2-1.0); Total Protein 6.9 g/dL (5.7-8.2)
[2023-07-09 15:25] VITALS: BP 108/62; PULSE 88; RESP 20; TEMP 97.5; O2SAT 99
== END 2023-07-09 16:23 | disposition home or self-care (01) ==
LOC: ER 08:59
DX: N93.9 Abnormal uterine and vaginal bleeding, unspecified (principal); R10.2 Pelvic and perineal pain; Z79.899 Other long term (current) drug therapy
CPT/HCPCS: 36415; 76830; 76856; 80053; 81001; 81025; 84702; 85025

== ENCOUNTER → 2023-07-19 | Outpatient (CLI) | payer BC, MEDICAID ==
[2023-07-19 10:18] LABS: Basophils # (auto) 0 10 ^3/uL (0-0.2); Basophils % (auto) 0.6 % (0.0-2.0); Eosinophils # (auto) 0 10 ^3/uL (0-0.8); Eosinophils % (auto) 0.8 % (0.0-7.0); Hematocrit 39.3 % (36.0-46.0); Lymphocytes # (auto) 1.8 10 ^3/uL (0.4-5.4); Lymphocytes % (auto) 44.5 % (10.0-50.0); Mean Corpuscular Hemoglobin 27.4 pg (28.0-32.0); Monocytes # (auto) 0.4 10 ^3/uL (0-1.3); Monocytes % (auto) 10.5 % (0.0-12.0); Neutrophils # (auto) 1.8 10 ^3/uL (1.6-8.6); Neutrophils % (auto) 43.6 % (37.0-80.0); Nucleated Red Blood Cells % 0.2 %; Red Blood Cells 4.74 10^6/uL (4.0-5.20); Red Cell Distribution Width 13.2 % (11.8-14.3); White Blood Cell 4.1 10^3/uL (4.4-10.8)
[2023-07-19 10:37] LABS: Alanine Aminotransferase 24 U/L (7-40); Alkaline Phosphatase 76 U/L (46-116); Calcium 8.8 mg/dL (8.7-10.4); Chloride 108 mmol/L (98-107)
[2023-07-19 10:38] LABS: Albumin 4.3 g/dL (3.2-4.8); Anion Gap 6 (5-15); Aspartate Aminotransferase 23 U/L (13-40); BUN/Creatinine Ratio 14.3 (10.0-20.0); Bilirubin, Total 0.5 mg/dL (0.2-1.0); Blood Urea Nitrogen 10 mg/dL (9-23); Carbon Dioxide 25 mmol/L (20-30); Glucose 88 mg/dL (74-106); Potassium 4.1 mmol/L (3.5-5.1); Sodium 139 mmol/L (136-145); Total Protein 6.7 g/dL (5.7-8.2)
[2023-07-19 10:50] LABS: Erythrocyte Sedimentation Rate 2 mm/hr (0-20)
[2023-07-19 11:13] LABS: Urine Bacteria FEW /hpf (None Seen); Urine Blood Negative /uL (Negative); Urine Clarity Clear (Clear); Urine Color Yellow (Yellow); Urine Mucus FEW (None Seen); Urine Protein, UAD Negative (Negative); Urine Specific Gravity 1.025 (1.001-1.035); Urine Urobilinogen Normal (Negative); Urine WBC 10 /hpf (0 - 5); Urine pH 6.5 (5.0-8.0)
== END | disposition home or self-care (01) ==
LOC: LAB 09:59
PROVIDERS: ATTEND Internal Medicine
DX: M54.2 Cervicalgia (principal); R68.83 Chills (without fever)
CPT/HCPCS: 36415; 80053; 81001; 81025; 84439; 85025; 85652; 87040

== ENCOUNTER → 2023-07-29 | Outpatient (CLI) | payer BC, MEDICAID ==
[2023-07-29 09:08] LABS: Basophils # (auto) 0 10 ^3/uL (0-0.2); Basophils % (auto) 0.3 % (0.0-2.0); Eosinophils # (auto) 0.1 10 ^3/uL (0-0.8); Eosinophils % (auto) 1.2 % (0.0-7.0); Hematocrit 40.1 % (36.0-46.0); Hemoglobin 13.1 g/dL (12.2-16.2); Lymphocytes # (auto) 2.6 10 ^3/uL (0.4-5.4); Lymphocytes % (auto) 42.8 % (10.0-50.0); Mean Corpuscular Hgb Conc. 32.7 g/dL (32.0-36.0); Mean Corpuscular Volume 82.5 fL (80.0-100.0); Monocytes # (auto) 0.4 10 ^3/uL (0-1.3); Monocytes % (auto) 6.2 % (0.0-12.0); Neutrophils % (auto) 49.5 % (37.0-80.0); Nucleated Red Blood Cells % 0.1 %; Red Blood Cells 4.87 10^6/uL (4.0-5.20); Red Cell Distribution Width 12.9 % (11.8-14.3)
[2023-07-29 09:57] LABS: Alanine Aminotransferase 22 U/L (7-40); Albumin 4.4 g/dL (3.2-4.8); Alkaline Phosphatase 77 U/L (46-116); Amylase 71 U/L (30-118); Anion Gap 6 (5-15); Aspartate Aminotransferase 17 U/L (13-40); BUN/Creatinine Ratio 12.7 (10.0-20.0); Bilirubin, Total 0.5 mg/dL (0.2-1.0); Blood Urea Nitrogen 9 mg/dL (9-23); Calcium 9.3 mg/dL (8.5-10.1); Carbon Dioxide 26 mmol/L (20-30); Chloride 108 mmol/L (98-107); Glucose 70 mg/dL (74-106); Potassium 4.2 mmol/L (3.5-5.1); Sodium 140 mmol/L (136-145); Total Protein 6.9 g/dL (5.7-8.2)
[2023-07-29 09:59] LABS: Thyroid Stimulating Hormone 3.5 uIU/mL (0.55-4.78)
[2023-07-29 10:48] LABS: Lipase 43 U/L (12-53)
== END | disposition home or self-care (01) ==
LOC: LAB 08:55
PROVIDERS: ATTEND Internal Medicine
DX: O03.9 Complete or unspecified spontaneous abortion without complication (principal); E03.9 Hypothyroidism, unspecified
CPT/HCPCS: 36415; 80053; 82150; 83690; 84439; 84443; 84702; 85025

== ENCOUNTER 2024-11-19 15:31 | Inpatient (IN) | payer BC, MEDICAID ==
[~2024-11-19] VITALS: Ht 162.6 cm; Wt 64.2 kg
[2024-11-19] MEDS: SODIUM CHLORIDE 0.9% 1,000 ML IV ONE
--- NOTE | 2024-11-19 17:13 | ED.PDOC ---
GI ASSESSMENT HPI Comments 34 y.o female presents to the ED for a chief complaint of diffuse abdominal pain radiating to her back associated with a generalized headache and body pain that started 2 weeks ago. Patient describes all pain regions as sharp, stabbing sensation that is constant and has no alleviating factors. Patient reports she went to see her PCP today for this complaint and was sent to the ED due to hypotension at the office. Patient presents with a blood pressure of 100/78 at the ED with temperature of 99.6 F. Patient denies any active nausea, vomiting, diarrhea, constipation, chills, blood stool. Patient does mention a heavy sensation 2 weeks ago when urinating but has since resolved on its own. Patient denies any sick contact exposure however reports recent travel to [place]. Chief Complaint: Low Blood Pressure Time Seen by MD: 16:57 Primary Care Provider: MARY ELLEN Kingsley Notes: Nurses Notes, Medications, Allergies Allergies: Coded Allergies: NO KNOWN ALLERGIES (Unverified , 07/02/22) Home Meds Active Scripts Ibuprofen Micronized (Ibuprofen) 800 Mg Tab, 800 MG PO Q6HR PRN, #20 TAB Prov:NABEEL GATESSatinderMAVERICK Sammy LOCKETT 07/04/22 Reported Medications Vit W/ Ferrous Fumara (PNV PLUS MULTIVI) Plus Tab, 1 OR DAILY, TAB 06/06/22 Information Source: Patient Mode of Arrival: Ambulatory Timing: Weeks (2) Duration: Since onset Quality: Sharp Vomitus: None Stool: Normal Severity: Moderate Recent: None Recent Hx of: None Pain Location: Diffuse Modifying Factors: Nothing Associated sign and symptoms: Abdominal Pain Past Medical History PAST MEDICAL HISTORY: Thyroid Surgical History: Denies all surgeries DOPE DRY HOUSE OPERATOR 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 History Family History Family History: Reviewed,noncontributory to illness, No family hx of Cancer, No family hx of DM, No family hx of Heart kimberley, No family hx of HTN, No family hx ofKidney kimberley, No family hx of Liver kimberley, No family hx of Lung kimberley, No family hx of Stroke Social History Smoker: Non-Smoker Alcohol: Denies ETOH Use Drugs: Denies Drug Use Lives In: Home Constitutional: denies: chills, diaphoresis, fatigue, fever, malaise, sweats, weakness, others EENTM: denies: blurred vision, double vision, ear bleeding, ear discharge, ear drainage, ear pain, ear ringing, eye pain, eye redness, hearing loss, mouth pain, mouth swelling, nasal discharge, nose bleeding, nose congestion, nose pain, photophobia, tearing, throat pain, throat swelling, voice changes, others Respiratory: denies: cough, hemoptysis, orthopnea, SOB at rest, shortness of breath, SOB with excertion, stridor, wheezing, others Cardiovascular: denies: chest pain, dizzy spells, diaphoresis, Dyspnea on exertion, edema, irregular heart beat, left arm pain, lightheadedness, palpitations, PND, syncope, others Gastrointestinal: reports: abdominal pain; denies: abdomen distended, blood streaked bowels, constipated, diarrhea, dysphagia, difficulty swallowing, he matemesis, melena, nausea, poor appetite, poor fluid intake, rectal bleeding, rectal pain, vomiting, others Genitourinary: denies: abnormal vagina bleeding, burning, dyspareunia, dysuria, flank pain, frequency, hematuria, incontinence, pain, , vagina discharge, urgency, others Neurological: reports: headache; denies: dizziness, fainting, left sided numbness, left sided weakness, numbness, paresthesia, pre-existing deficit, right sided numbness, right sided weakness, seizure, speech problems, tingling, tremors, weakness, others Musculoskeletal: reports: back pain; denies: gout, joint pain, joint swelling, muscle pain, muscle stiffness, neck pain, others Integumetry: denies: bruises, change in color, change in hair/nails, dryness, laceration, lesions, lumps, rash, wounds, others Allergic/Immunocompromised: denies: Difficulty Healing, Frequent Infections, Hives, Itching, others Hematologic/Lymphatic: denies: anemia, blood clots, easy bleeding, easy bruising, swollen glands, others Endocrine: denies: excessive hunger, excessive sweating, excessive thirst, excessive urination, flushing, intolerance to cold, intolerance to heat, unexplained weight gain, unexplained weight loss, others Psychiatric: denies: anxiety, bipolar disorder, depression, hopeless, panic disorder, schizophrenia, sleepless, suicidal, others All Other Systems: Reviewed and Negative Physical Exam General Appearance: Moderate Distress HEENT: Other (Pupils and face symmetric. Moist mucous membranes.) Neck: Full Range of Motion, Normal Inspection Respiratory: Lungs Clear, No Accessory Muscle Use, No Respiratory Distress, Normal Breath Sounds Cardiovascular: No Edema, No JVD, Regular Rate/Rhythm Breast Exam: Deferred Gastrointestinal: Diffuse, Soft, Tenderness Genitalia: Deferred Pelvic: Deferred Rectal: Deferred Extremities: Normal inspection, Normal range of motion, Non-tender, No pedal edema Neurologic: Alert (Oriented x4), Normal Affect, Normal Mood, Other (Ambulatory.) Cerebellar Function: NOT DONE Reflexes: NOT DONE Skin: Dry, Normal Color, Warm Lymphatic: NOT DONE Was a procedure done? Was a procedure done?: No GI differential Dx Differential Diagnosis: Diverticular disease, Ectopic , Esophagitis, Gastritis/PUD, Gastroenteritis, Inflammatory BD, Ischemic Bowel, Pancreatitis, UTI, Dehydration, Diabetes/ DKA, Electrolyte Imbalance, Food Poisoning, , Bacterial, Parasitic, Viral, Hypovolemia, Impaction, Renal Failure, Stress Ulcer Other Differential Diagnosis Metabolic headache, vascular headache, CVA, TIA, intracranial hemorrhage, mass lesion X-Ray, Labs, Meds, VS Vital Signs Date Time Temp Pulse Resp B/P (MAP) Pulse Ox O2 Delivery O2 Flow Rate FiO2 11/19/24 20:52 100.0 76 18 79/38 (52) 97 100.0 11/19/24 20:30 100.0 103 18 97/62 (74) 97 100.0 11/19/24 20:30 103 18 96 Room Air* 0 21 11/19/24 17:15 79 16 79/38 11/19/24 15:43 99.6 102 18 100/78 (85) 98 99.6 Lab Test 11/19/24 19:04 11/19/24 17:35 11/19/24 15:44 Range/Units Troponin I High Sensitivity < 3 L < 3 L </=34 ng/L White Blood Count 3.5 L 4.4-10.8 10^3/uL Red Blood Count 5.21 H 4.0-5.20 10^6/uL Hemoglobin 14.0 12.2-16.2 g/dL Hematocrit 41.5 36.0-46.0 % Mean Corpuscular Volume 79.6 L 80.0-100.0 fL Mean Corpuscular Hemoglobin 26.8 L 28.0-32.0 pg Mean Corpuscular Hemoglobin Concent 33.7 32.0-36.0 g/dL Red Cell Distribution Width 14.3 11.8-14.3 % Platelet Count 135 L 140-450 10^3/uL Mean Platelet Volume 11.0 H 6.9-10.8 fL Neutrophils (%) (Auto) 37.0-80.0 % Lymphocytes (%) (Auto) 10.0-50.0 % Monocytes (%) (Auto) 0.0-12.0 % Basophils (%) (Auto) 0.0-2.0 % Neutrophils # (Auto) 1.6-8.6 10 ^3/uL Lymphocytes # (Auto) 0.4-5.4 10 ^3/uL Monocytes # (Auto) 0-1.3 10 ^3/uL Differential Total Cells Counted 100.0 100 Neutrophils % (Manual) 39 37.0-80.0 Band Neutrophils % (Manual) 4 Lymphocytes % (Manual) 43 10.0-50.0 Monocytes % (Manual) 12 0-12 Eosinophils % (Manual) 2 0-7 Basophils % (Manual) 0 0.0-2.0 Metamyelocytes % (manual) 0 Myelocytes % (Manual) 0 Promyelocytes % (Manual) 0 Blast Cells % (Manual) 0 Reactive Lymphocytes 0 Platelet Estimate Decreased Large Platelets Few Sodium Level 138 136-145 mmol/L Potassium Level 3.3 L 3.5-5.1 mmol/L Chloride Level 101 98-107 mmol/L Carbon Dioxide Level 25 20-31 mmol/L Anion Gap 12 5-15 Blood Urea Nitrogen 14 9-23 mg/dL Creatinine 0.80 0.550-1.02 mg/dL Glomerular Filtration Rate Calc 99 >90 mL/min BUN/Creatinine Ratio 17.5 10.0-20.0 Serum Glucose 89 74-106 mg/dL Lactic Acid Level 0.9 0.4-2.0 mmol/L Calcium Level 9.1 8.7-10.4 mg/dL Total Bilirubin 0.3 0.2-1.0 mg/dL Aspartate Amino Transferase (AST) 20 13-40 U/L Alanine Aminotransferase (ALT) 20 7-40 U/L Alkaline Phosphatase 67 46-116 U/L Total Protein 6.9 5.7-8.2 g/dL Albumin 4.6 3.2-4.8 g/dL Lipase 57 H 12-53 U/L Beta HCG, Quantitative 0.3 L 1.5-4.2 mIU/mL POC Glucose 95 70-106 mg/dl Current Medications Medications (Trade) Dose Ordered Sig/Truman Route Start Time Stop Time Status Last Admin Sodium Chloride 1,650 ml @ 1,650 mls/hr ONCE ONCE IV 11/19/24 17:15 11/19/24 18:14 DC 11/19/24 20:47 Pantoprazole Sodium (Protonix) 40 mg ONCE ONCE IV 11/19/24 17:15 11/19/24 17:19 DC 11/19/24 20:57 Potassium Bicarbonate (Klor-Con/Ef) 50 meq ONCE ONCE PO 11/19/24 21:00 11/19/24 21:01 11/19/24 20:57 PROCEDURE(s): HWOCT - HEAD WITHOUT CONTRAST REASON: severe occipital headache ORDER NUMBER(s): [id number], ACCESSION NUMBER(s): [id number] CT HEAD WITHOUT CONTRAST INDICATION: severe occipital headache COMPARISON: None TECHNIQUE: CT of the head without intravenous contrast. RADIATION DOSE: CTDIvol: mGy, DLP: mGy*cm FINDINGS: There is no evidence of intracranial hemorrhage, infarct, extra-axial collection, mass effect, midline shift, herniation or hydrocephalus. The ventricles, sulci and cisterns are normal. The roth-white differentiation is normal. Mucus retention cyst in right maxillary sinus, mild mucosal thickening in left maxillary and bilateral ethmoid sinuses. Mastoid air cells and middle ear cavities are clear. Soft tissues and osseous structures are unremarkable. IMPRESSION: No intracranial abnormality. EDURE(s): ABPL - CT AB PEL WO CON-NO ORAL OR IV REASON: abdominal pain, nausea, hypotension ORDER NUMBER(s): [id number], ACCESSION NUMBER(s): [id number] Exam: CT CT AB PEL WO CON-NO ORAL OR IV History: abdominal pain, nausea, hypotension Comparison Study: None available at time of dictation. Technique: Multidetector CT of the abdomen and pelvis without contrast. Axial, coronal and sagittal multiplanar reformats were performed by the technologist on a separate workstation. Radiation Dose Information: CT Dose: CTDI volume is mGy. Dose-length product is mGy*cm Findings: The lung bases are clear. Partially visualized heart is unremarkable. Mild splenomegaly. Otherwise, liver, spleen, gallbladder, pancreas and adrenal glands unremarkable. Kidneys, ureters and urinary bladder unremarkable. Fibroid uterus. Otherwise, Uterus and adnexa unremarkable. Stomach is unremarkable. Small bowel loops unremarkable. Appendix is unremark able. Small to moderate amount of fecal material within the colon. Mild rectal wall thickening which is most likely from inadequate distension. No evidence of intraperitoneal free air or free fluid. No evidence of aortic aneurysm. Flattening the IVC which may be from volume loss. No significant lymphadenopathy. Tiny fat containing umbilical hernia. No destructive osseous lesions are noted. Sclerotic focus of the left femoral head which may represent a bone island with a blastic lesion not completely excluded. IMPRESSION: No evidence of acute abdominopelvic abnormalities. X-Ray, Labs, Meds, VS Comment 34-year-old female with a history of thyroid disease brought in by family, referred by primary physician for abdominal pain, severe headache and hypotension Vitals remarkable for temperature 99.6, heart rate 102, blood pressure 100/78 Exam remarkable for diffuse abdominal tenderness to palpation Rhythm strip independently interpreted by me: Sinus tach, rate 102, no ectopy. CT head unremarkable CT abdomen and pelvis unremarkable CBC remarkable for WBC 3.5, metabolic panel remarkable for potassium 3.3, lipase 57, serial troponins negative, hCG negative, UA pending Patient treated with the following in the ED: 30cc per kg IV normal saline bolus, morphine 4 mg IV, Zofran 4 mg IV, Protonix 40 mg IV, potassium effervescent 50 mEq p.o. On re-evaluation, patient states pain has somewhat improved but is still present, and there is still general malaise. Vitals are stable. Plan is to admit the patient for pain control, lipase trend and GI evaluation. Time of 1ST Reevaluation: 17:08 Reevaluation 1ST: Unchanged Patient Education/Counseling: Diagnosis, Treatment, Prognosis Family Education/Counseling: Diagnosis, Treatment, Prognosis Departure 1 Departure Time of Disposition: 20:47 Impression: Primary Impression: Abdominal pain Additional Impressions: Pancreatitis Headache Disposition: ADMITTED INPATIENT Admit to: Med Surg Condition: Guarded Critical Care Note Critical Care Time?: No Stability Stability form required: No I personally scribed for VIRGIL SPENCER MD ([email or web address]) on 11/19/24 at 17:13. Electronically submitted by Catarina Tabor ([facility]). VIRGIL SPENCER MD Nov 19, 2024 17:13
[2024-11-19] MEDS: MORPHINE SULFATE 4 MG/ML SYR/VIAL IV ONE (17:15)
[2024-11-19] MEDS: ONDANSETRON HCL 4 MG/2 ML VIAL IV ONE (17:15)
[2024-11-19 18:28] LABS: Hematocrit 41.5 % (36.0-46.0); Mean Corpuscular Hemoglobin 26.8 pg (28.0-32.0); Mean Corpuscular Hgb Conc. 33.7 g/dL (32.0-36.0); Mean Corpuscular Volume 79.6 fL (80.0-100.0); Platelet Count (auto) 135 10^3/uL (140-450); Red Blood Cells 5.21 10^6/uL (4.0-5.20); Red Cell Distribution Width 14.3 % (11.8-14.3); White Blood Cell 3.5 10^3/uL (4.4-10.8)
[2024-11-19 18:37] LABS: Alanine Aminotransferase 20 U/L (7-40); Albumin 4.6 g/dL (3.2-4.8); Alkaline Phosphatase 67 U/L (46-116); Anion Gap 12 (5-15); Aspartate Aminotransferase 20 U/L (13-40); BUN/Creatinine Ratio 17.5 (10.0-20.0); Blood Urea Nitrogen 14 mg/dL (9-23); Calcium 9.1 mg/dL (8.7-10.4); Carbon Dioxide 25 mmol/L (20-31); Chloride 101 mmol/L (98-107); Glucose 89 mg/dL (74-106); Potassium 3.3 mmol/L (3.5-5.1); Sodium 138 mmol/L (136-145); Total Protein 6.9 g/dL (5.7-8.2)
[2024-11-19 18:38] LABS: Basophils % (manual) 0 (0.0-2.0); Blast Cells 0; Metamyelocytes % 0; Myelocytes % 0; Promyelocytes % 0; Reactive Lymphocytes 0
[2024-11-19 19:08] LABS: Bilirubin, Total 0.3 mg/dL (0.2-1.0)
[2024-11-19 19:10] LABS: Lipase 57 U/L (12-53)
--- NOTE | 2024-11-19 19:24 | DVH ---
CT HEAD WITHOUT CONTRAST INDICATION: severe occipital headache COMPARISON: None TECHNIQUE: CT of the head without intravenous contrast. RADIATION DOSE: CTDIvol: mGy, DLP: mGy*cm FINDINGS: There is no evidence of intracranial hemorrhage, infarct, extra-axial collection, mass effect, midli ne shift, herniation or hydrocephalus. The ventricles, sulci and cisterns are normal. The roth-white differentiation is normal. Mucus retention cyst in right maxillary sinus, mild mucosal thickening in left maxillary and bilatera l ethmoid sinuses. Mastoid air cells and middle ear cavities are clear. Soft tissues and osseous stru ctures are unremarkable. IMPRESSION: No intracranial abnormality.
[2024-11-19 19:31] LABS: Band Neutrophils % (manual) 4; Eosinophils % (manual) 2 (0-7); Lymphocytes % (manual) 43 (10.0-50.0); Monocytes % (manual) 12 (0-12); Platelet Estimate Decreased
[2024-11-19 19:32] LABS: Large Platelets FEW
--- NOTE | 2024-11-19 19:32 | DVH ---
Exam: CT CT AB PEL WO CON-NO ORAL OR IV History: abdominal pain, nausea, hypotension Comparison Study: None available at time of dictation. Technique: Multidetector CT of the abdomen and pelvis without contrast. Axial, coronal and sagittal m ultiplanar reformats were performed by the technologist on a separate workstation. Radiation Dose Information: CT Dose: CTDI volume is mGy. Dose-length product is mGy*cm Findings: The lung bases are clear. Partially visualized heart is unremarkable. Mild splenomegaly. Otherwise, liver, spleen, gallbladder, pancreas and adrenal glands unremarkable. Kidneys, ureters and urinary bladder unremarkable. Fibroid uterus. Otherwise, Uterus and adnexa unre markable. Stomach is unremarkable. Small bowel loops unremarkable. Appendix is unremarkable. Small to moderate amount of fecal material within the colon. Mild rectal wall thickening which is most likely from inad equate distension. No evidence of intraperitoneal free air or free fluid. No evidence of aortic aneurysm. Flattening the IVC which may be from volume loss. No significant lymphadenopathy. Tiny fat containing umbilical hernia. No destructive osseous lesions are noted. Sclerotic focus of th e left femoral head which may represent a bone island with a blastic lesion not completely excluded. IMPRESSION: No evidence of acute abdominopelvic abnormalities.
[2024-11-19 20:30] VITALS: PULSE 103; RESP 18; O2SAT 96
[2024-11-19] MEDS: SODIUM CHLORIDE 0.9% 1,650 ML IV ONE (20:47)
[2024-11-19] MEDS: PANTOPRAZOLE 40 MG/10 ML VIAL INJ IV ONE (20:57)
[2024-11-19] MEDS: POTASSIUM EFFERVESENT TAB 25 MEQ PO ONE (20:57)
[2024-11-19 21:40] VITALS: PULSE 90; RESP 18; O2SAT 98
--- NOTE | 2024-11-19 23:41 | DVHHPRES ---
History of Present Illness Resident Creating Document: FELECIA THORNTON RESIDENT History of Present Illness Is a 34-year-old female with no past medical history who was sent by her PCP due to low blood pressure. According to the patient, she has been having a stomachache along with a headache for the past 2 weeks, on Tuesday she also started experiencing a dry cough which was persistent in nature. Denies any nausea, vomiting, diarrhea or similar symptoms before in the past. Patient notes that eating or drinking worsens her abdominal pain, denies any relieving factors. Of note, patient returned from [facility] 6 weeks ago. Denies any sick contacts. On review of systems patient is complaining of fatigue, fever, chills, cough, shortness of breath, photosensitivity, dysuria. CT abdomen pelvis was largely unremarkable, serum lipase was 57. Patient was started on IV NS at 30 cc/kg per hour with the maintenance of 100 cc/hour, IV vancomycin and IV Zosyn. Past Medical History Denies Past Surgical History Appendectomy Smoke: No ALCOHOL: none Drugs: None Lives: with Family Review of Systems Constitutional: Yes: Fever, Chills, Malaise; No: Sweats, Weakness, Other Eyes: No: Pain, Vision change, Conjunctivae inflammation, Eyelid inflammation, Other, Redness ENT: No: Ear pain, Ear discharge, Nose pain, Nose discharge, Nose congestion, Mouth pain, Mouth swelling, Throat pain, Throat swelling, Other Respiratory: Cough, Shortness of breath; No: Dry, SOB with excertion, Wheezing, Hemoptysis, Pleuritic Pain, Sputum, Wheezing, Other Cardiovascular: No: Chest Pain, Palpitations, Orthopnea, Paroxysmal Noc. Dyspnea, Edema, Lt Headedness, Other Gastrointestinal: No: Nausea, Vomiting, Abdominal Pain, Diarrhea, Constipation, Melena, Hematochezia, Other Genitourinary: Dysuria; No Frequency, No Incontinence, No Hematuria, No Retention, No Other Musculoskeletal: No: other, neck pain, shoulder pain, arm pain, back pain, hand pain, leg pain, foot pain Skin: No: Rash, Lesions, Jaundice, Bruising, Other Neurological: No: Weakness, Numbness, Incoordination, Change in speech, Confusion, Seizures, Other Allergies: Coded Allergies: NO KNOWN ALLERGIES (Unverified , 07/02/22) Exam Vital Signs Vital Signs Date Time Temp Pulse Resp B/P (MAP) Pulse Ox O2 Delivery O2 Flow Rate FiO2 11/19/24 20:52 100.0 76 18 79/38 (52) 97 100.0 11/19/24 20:30 Room Air* 0 21 General Appearance: Alert, Oriented X3, Cooperative, moderate distress HEENT: Atraumatic, PERRLA, EOMI, Other (Dry mucous membranes. Mild tenderness to palpation on the scalp noted) Respiratory: Clear to auscultation, Normal air movement Cardiovascular: Normal S1, Normal S2, Other (Tachycardic) Abdominal: Soft, Other (Generalized abdominal tenderness to palpation most prominent in the suprapubic area) Extremities: No edema, Normal pulses Skin: No significant lesion Neuro: Normal speech, Strength at 5/5 X4 ext, Sensation intact Psych/Mental Status: Mental status NL, Mood NL Labs/Xrays Labs Test 11/19/24 19:04 11/19/24 17:35 11/19/24 15:44 Range/Units Troponin I High Sensitivity < 3 L </=34 ng/L White Blood Count 3.5 L 4.4-10.8 10^3/uL Red Blood Count 5.21 H 4.0-5.20 10^6/uL Hemoglobin 14.0 12.2-16.2 g/dL Hematocrit 41.5 36.0-46.0 % Mean Corpuscular Volume 79.6 L 80.0-100.0 fL Mean Corpuscular Hemoglobin 26.8 L 28.0-32.0 pg Mean Corpuscular Hemoglobin Concent 33.7 32.0-36.0 g/dL Red Cell Distribution Width 14.3 11.8-14.3 % Platelet Count 135 L 140-450 10^3/uL Mean Platelet Volume 11.0 H 6.9-10.8 fL Neutrophils (%) (Auto) 37.0-80.0 % Lymphocytes (%) (Auto) 10.0-50.0 % Monocytes (%) (Auto) 0.0-12.0 % Basophils (%) (Auto) 0.0-2.0 % Neutrophils # (Auto) 1.6-8.6 10 ^3/uL Lymphocytes # (Auto) 0.4-5.4 10 ^3/uL Monocytes # (Auto) 0-1.3 10 ^3/uL Differential Total Cells Counted 100.0 100 Neutrophils % (Manual) 39 37.0-80.0 Band Neutrophils % (Manual) 4 Lymphocytes % (Manual) 43 10.0-50.0 Monocytes % (Manual) 12 0-12 Eosinophils % (Manual) 2 0-7 Basophils % (Manual) 0 0.0-2.0 Metamyelocytes % (manual) 0 Myelocytes % (Manual) 0 Promyelocytes % (Manual) 0 Blast Cells % (Manual) 0 Reactive Lymphocytes 0 Platelet Estimate Decreased Large Platelets Few Sodium Level 138 136-145 mmol/L Potassium Level 3.3 L 3.5-5.1 mmol/L Chloride Level 101 98-107 mmol/L Carbon Dioxide Level 25 20-31 mmol/L Anion Gap 12 5-15 Blood Urea Nitrogen 14 9-23 mg/dL Creatinine 0.80 0.550-1.02 mg/dL Glomerular Filtration Rate Calc 99 >90 mL/min BUN/Creatinine Ratio 17.5 10.0-20.0 Serum Glucose 89 74-106 mg/dL Lactic Acid Level 0.9 0.4-2.0 mmol/L Calcium Level 9.1 8.7-10.4 mg/dL Total Bilirubin 0.3 0.2-1.0 mg/dL Aspartate Amino Transferase (AST) 20 13-40 U/L Alanine Aminotransferase (ALT) 20 7-40 U/L Alkaline Phosphatase 67 46-116 U/L Total Protein 6.9 5.7-8.2 g/dL Albumin 4.6 3.2-4.8 g/dL Lipase 57 H 12-53 U/L Beta HCG, Quantitative 0.3 L 1.5-4.2 mIU/mL POC Glucose 95 70-106 mg/dl Assessment/Plan Assessment/Plan Sepsis probably due to Influenza B versus acute pancreatitis? - head CT: No acute intracranial abnormality. Mucous retention cysts in the ri ght maxillary sinus, mild mucosal thickening in the left maxillary and bilateral ethmoid sinuses. - CT abdomen pelvis: No evidence of acute abdominopelvic abnormalities - serum lipase mildly elevated at 57 - CXR: Unremarkable - UA: Largely unremarkable except 2+ blood which is likely due to patient currently menstruating - IV vancomycin per pharmacy, IV Zosyn - IV Zofran as needed - IV NS at 30 cc/kg per hour followed by IV NS at 100 cc/hour maintenance - IV NS 1 L bolus - ordered blood culture, urine culture Hypokalemia -repleted Severe vitamin-D deficiency, serum vitamin-D 8 - vitamin-D 31982 units once Possible hypothyroidism, serum TSH 6.39 - ordered free T4, total T3 PUD prophylaxis: protonix 40mg DVT prophylaxis: Levonox 40mg Goals of care: Full code, discussed for >16 minutes on 11/19/2024 Plan discussed with patient Plan discussed with Dr. Oleary Plan discussed with: Patient, Spouse, Other (RN) My Orders Orders - FELECIA THORNTON RESIDENT Procedure Category Date Status Time Admit ADMIT 11/19/24 Transmitted 23:35 Allergies EDWIN 11/19/24 In Process 23:35 Code Status CODE 11/19/24 Transmitted 23:35 Acetaminophen Tablet PHA 11/19/24 Transmitted (Tylenol Tablet) 23:45 Ondansetron Hcl PHA 11/19/24 Transmitted (Zofran) 23:45 Enoxaparin Sodium PHA 11/20/24 Transmitted (Lovenox) 10:00 Complete Blood Count LAB 11/20/24 Verified 04:00 Comprehensive LAB 11/20/24 Verified Metabolic Panel 04:00 Npo (Nothing By DIET 11/20/24 Transmitted Mouth) Diet Breakfast Condition: Unstable EDWIN 11/19/24 In Process 23:35 Notify Of Changes EDWIN 11/19/24 In Process From Base 23:35 NS PHA 11/19/24 Transmitted 23:45 Vancomycin Per PHA 11/19/24 Transmitted Pharmacy 23:45 Zosyn Extended PHA 11/19/24 Transmitted Infusion 23:45 Blood Culture PETER 11/19/24 Transmitted 23:35 Lactic Acid W/ Reflex LAB 11/19/24 Transmitted Order 23:35 Urinalysis LAB 11/19/24 Transmitted 23:35 Drug Screen LAB 11/19/24 Verified 23:35 Covid19 Antigen Radha LAB 11/19/24 Transmitted Rapid Influenza A&B LAB 11/19/24 Verified 23:35 Date of Service: Nov 19, 2024 Billing Provider: VIVIAN OLEARY MD Common Visit Codes: [id number] INP/OBS CARE (HIGH) FELECIA THORNTON Nov 19, 2024 23:41
[2024-11-19] MEDS ORDERED: VANCOMYCIN PER PHARMACY 0 MG IV SCH (23:45)
[2024-11-19] MEDS ORDERED: ONDANSETRON HCL 4 MG/2 ML VIAL IV PRN (23:45)
[2024-11-20] MEDS: PIPERACILLIN-TAZOB 3.375GM 100 ML IV SCH (00:21)
[2024-11-20 01:19] LABS: Urine Bacteria None Seen /hpf (None Seen)
[2024-11-20] MEDS: ACETAMINOPHEN 325 MG TAB PO ONE (01:28)
[2024-11-20 01:36] LABS: Urine Blood 2+ /uL (Negative); Urine Clarity Clear (Clear); Urine Color Yellow (Yellow); Urine Mucus FEW (None Seen); Urine Protein, UAD Negative (Negative); Urine Specific Gravity 1.019 (1.001-1.035); Urine Squamous Epithelial Cell FEW /hpf (<5); Urine Urobilinogen Normal (Negative); Urine WBC 6 /HPF (0-5)
[2024-11-20 02:01] LABS: Amphetamine Screen, Urine Neg (NEGATIVE); Barbiturate Scree,Urine Neg (NEGATIVE); Benzodiazephine Screen, Urine Neg (NEGATIVE); Cannabinoid Screen, Urine Neg (NEGATIVE); Cocaine Screen, Urine Neg (NEGATIVE); Opiate Scree,Urine Neg (NEGATIVE); Phencyclidine Screen, Urine Neg (NEGATIVE)
[2024-11-20 02:03] LABS: Rapid Influenza A Negative (Negative)
[2024-11-20 02:04] LABS: Rapid Influenza B Positive (Negative)
[2024-11-20 02:05] LABS: COVID19 ANTIGEN SOFIA FIA NEGATIVE (NEGATIVE)
[2024-11-20] MEDS: VANCOMYCIN 1.25gm/250mL PREMIX or KIT IV ONE (03:38)
[2024-11-20] MEDS: SODIUM CHLORIDE 0.9% 1,000 ML IV ONE ×3 (04:15→21:00)
--- NOTE | 2024-11-20 06:10 | DVH ---
CHEST RADIOGRAPH Indication: persistent cough Technique: Single frontal view of the chest was obtained Comparison: None FINDINGS: Lines and Tubes: None Lungs: No focal consolidation. Pleura: No effusion. No pneumothorax. Cardiomediastinal contours: Unremarkable Bones: No acute osseous abnormality. IMPRESSION: 1. No acute cardiopulmonary disease.
[2024-11-20 06:21] LABS: Basophils # (auto) 0 10 ^3/uL (0-0.2); Eosinophils # (auto) 0 10 ^3/uL (0-0.8); Hemoglobin 11.8 g/dL (12.2-16.2); Lymphocytes # (auto) 1.5 10 ^3/uL (0.4-5.4); Monocytes # (auto) 0.2 10 ^3/uL (0-1.3); White Blood Cell 3.4 10^3/uL (4.4-10.8)
[2024-11-20 06:23] LABS: Basophils % (auto) 0.3 % (0.0-2.0); Eosinophils % (auto) 0.3 % (0.0-7.0); Hematocrit 34.7 % (36.0-46.0); Lymphocytes % (auto) 43.9 % (10.0-50.0); Mean Corpuscular Hemoglobin 26.8 pg (28.0-32.0); Mean Corpuscular Hgb Conc. 33.9 g/dL (32.0-36.0); Monocytes % (auto) 7.3 % (0.0-12.0); Neutrophils # (auto) 1.6 10 ^3/uL (1.6-8.6); Neutrophils % (auto) 48.2 % (37.0-80.0); Nucleated Red Blood Cells % 0.1 %; Platelet Count (auto) 96 10^3/uL (140-450); Red Cell Distribution Width 14.7 % (11.8-14.3)
[2024-11-20 06:30] LABS: Alanine Aminotransferase 13 U/L (7-40); Albumin 3.5 g/dL (3.2-4.8); Alkaline Phosphatase 49 U/L (46-116); Anion Gap 9 (5-15); Aspartate Aminotransferase 16 U/L (13-40); BUN/Creatinine Ratio 12.3 (10.0-20.0); Carbon Dioxide 23 mmol/L (20-31); Potassium 3.6 mmol/L (3.5-5.1); Sodium 143 mmol/L (136-145)
[2024-11-20 06:31] LABS: Bilirubin, Total 0.3 mg/dL (0.2-1.0); Folate (Folic Acid) 12.17 ng/mL (>5.38)
[2024-11-20 06:34] LABS: Blood Urea Nitrogen 8 mg/dL (9-23); Calcium 7.8 mg/dL (8.7-10.4); Chloride 111 mmol/L (98-107); Glucose 110 mg/dL (74-106); Total Protein 5.5 g/dL (5.7-8.2)
[2024-11-20 07:38] LABS: Triglycerides 82 mg/dL (< 150)
[2024-11-20 07:39] LABS: LDL Cholesterol 72 mg/dL (< 100)
[2024-11-20 07:40] LABS: Cholesterol 118 mg/dL (< 200)
[2024-11-20 07:41] LABS: HDL Cholesterol 31 mg/dL (40-59)
[2024-11-20] MEDS: OSELTAMIVIR 75 MG CAP PO ONE (07:45)
[2024-11-20 09:07] LABS: T3 Total 0.97 ng/mL (0.60-1.81)
[2024-11-20 09:09] LABS: Free T4 (Free Thyroxine) 0.88 ng/dL (0.89-1.76)
[2024-11-20] MEDS ORDERED: ENOXAPARIN SOD 40 MG/0.4 ML SYRINGE SC SCH (10:00)
[2024-11-20 10:29] VITALS: BP 91/58; PULSE 77; RESP 17; TEMP 97.2; O2SAT 100
[2024-11-20 10:36] VITALS: BP 91/58; PULSE 77; RESP 17; TEMP 97.2; O2SAT 100
[2024-11-20] MEDS: SUCRALFATE 1 GM TAB PO ONE (12:59)
[2024-11-20] MEDS: ERGOCALCIFEROL 50,000 UNIT(1.25MG) CAP PO SCH (12:59)
[2024-11-20] MEDS: PANTOPRAZOLE 40 MG/10 ML VIAL INJ IV SCH (12:59)
[2024-11-20 13:02] VITALS: BP 101/67; PULSE 82; RESP 20; TEMP 98.1; O2SAT 100
[2024-11-20] MEDS ORDERED: VANCOMYCIN 750MG KIT 100 ML IV SCH (14:00)
--- NOTE | 2024-11-20 14:22 | DVHPNRES ---
Progress Note Date Seen: Nov 20, 2024 Resident Creating Document: BRITTANY ROBBINS RESIDENT Medical Necessity Reason Pt with a Central, PICC or Fol: No Subjective Review of Systems Patient is a 34-year-old female with no past medical history who was sent by her PCP due to low blood pressure. According to the patient, she has been having a stomachache along with a headache for the past 2 weeks, on Tuesday she also started experiencing a dry cough which was persistent in nature. Denies any nausea, vomiting, diarrhea or similar symptoms before in the past. Patient notes that eating or drinking worsens her abdominal pain, denies any relieving factors. Of note, patient returned from [facility] 6 weeks ago. Denies any sick contacts. On review of systems patient is complaining of fatigue, fever, chills, cough, shortness of breath, photosensitivity, dysuria. CT abdomen pelvis was largely unremarkable, she lab workup revealed leukopenia with a WBC 3.5, hemoglobin 11.8, thrombocytopenia with a platelet 135> 96, serum lipase was 57, TSH 6.39, free T3 for 0.88, free T3 0.97.. Influenza type B positive. Urinalysis ketone 2+. No evidence of acute abdominopelvic abnormalities. CT head- No intracranial abnormality. CXR no acute cardiopulmonary disease. PMH-none PSH- appendectomy Allergy- NKDA Personal History/ Social History- lives with family, denies alcoholism/drug abuse or smoking Patient was seen today at the bedside. Cardiovascular- deny acute chest pain or shortness of breath or cough or palpitation Respiratory denies cough or short of breath or wheezing Musculoskeletal-denies acute joint swelling or tenderness or redness Neurological- denies acute dysarthria, dysphagia, change in vision Psychiatry- denies depression or SI or HI Skin- denies acute rash or purpura Patient was seen today for clinical evaluation. Labs and chart reviewed. Patient reported her epigastric pain has improved, no nausea vomiting today. Patient with soft BP, ordered IV fluid 1000 mL bolus at a.m.. Ordered peripheral blood staining, change antibiotic to cefepime and metronidazole. Discontinued Zosyn and vancomycin. Also ordered oseltamivir. H pylori test for further evaluation and care. Objective vital signs Vital Sign Date Time Temp Pulse Resp B/P (MAP) Pulse Ox O2 Delivery O2 Flow Rate FiO2 11/20/24 13:02 98.1 82 20 101/67 (85) 100 98.1 11/19/24 21:40 Room Air* 0 21 Total Intake and Output 11/19/24 11/19/24 11/20/24 15:00 23:00 07:00 Intake Total 237 ml Balance 237 ml medications Current Medications Medications Dose Ordered Sig/Truman Route Start Time Stop Time Status Last Admin Dose Admin Acetaminophen 325 mg Q4HP PRN PO 11/19/24 23:45 Ondansetron HCl 4 mg Q4HP PRN IV 11/19/24 23:45 Pantoprazole Sodium 40 mg DAILY IV 11/20/24 10:00 11/20/24 12:59 40 MG Ergocalciferol 50,000 unit Q7D PO 11/20/24 10:00 11/20/24 12:59 50,000 UNIT Oseltamivir Phosphate 75 mg Q12HR PO 11/20/24 22:00 11/24/24 22:01 Sucralfate 1 gm QIDACHS PO 11/20/24 17:00 Examination General examination- HEENT- PEERLA, no acute nasal discharge Cardiovascular- S1-S2 audible, rate and rhythm regular, no murmur Respiratory- CTAB, no wheeze or rhonchi Gastrointestinal-nontender, bowel sound+. Nondistended Musculoskeletal-no acute joint swelling or tenderness or redness Lower extremity- Neurological- cranial nerves intact, no acute dysarthria or dysphagia Psychiatry- denies depression or SI or HI Skin- no acute rash or purpura laboratory and microbiology Laboratory Tests 11/20/24 05:39 Test 11/20/24 05:39 Range/Units Serum Glucose 110 H 74-106 mg/dL Problem List/Assessment/Plan Problem List/Assessment/Plan Assessment and plan Sepsis due to gastroenteritis Gastroenteritis, infectious etiology likely Intravascular volume depletion Starvation ketosis Influenza B infection Pancytopenia Leukopenia Tachycardia Tachypnea Plan Continue cefepime as prescribed Continue Flagyl as prescribed Continue pantoprazole as prescribed Continue sucralfate as prescribed Oseltamivir 75 mg p.o. q.12 hours Ergo cholecalciferol as prescribed Goals of care, Code status ; discussed with >15 minutes PUD prophylaxis: Pantoprazole DVT prophylaxis: Patient ambulating Plan discussed with Dr. Telles , nursing staff, Total time spent on patient evaluation, chart review, assessment and plan, discussion discussion >35 minutes Plan discussed with: Patient, Spouse, Other (RN) My Orders My Orders Orders - BRITTANY ROBBINS Procedure Category Date Status Time Respiratory Culture PETER 11/20/24 Logged W/ Gs 07:41 Oseltamivir 75mg PHA 11/20/24 Logged Capsule (Tamiflu 75mg 22:00 Sucralfate Tab PHA 11/20/24 In Process (Carafate Tab) 17:00 Clear Liq Diet DIET 11/20/24 Transmitted Lunch Date of Service: Nov 20, 2024 Billing Provider: KEN CHANEL MD Common Visit Codes: [id number] INP/OBS CARE(HIGH) BRITTANY ROBBINS Nov 20, 2024 14:22 KEN CHANEL MD November 24, 2024 21:04
[2024-11-20] MEDS: metroNIDAZOLE 500MG/100ML 100 ML IV ONE (14:45)
[2024-11-20 17:00] VITALS: BP 97/56; PULSE 83; RESP 19; TEMP 99; O2SAT 99
[2024-11-20] MEDS: CEFEPIME 1GM/ 50ML 50 ML IV ONE (17:32)
[2024-11-20] MEDS: SUCRALFATE 1 GM TAB PO SCH (17:32)
[2024-11-20] MEDS: MULTIPLE VITAMIN TAB PO ONE (18:31)
[2024-11-20 20:00] VITALS: PULSE 96; O2SAT 96
[2024-11-20 21:00] VITALS: BP 92/54; PULSE 98; RESP 19; TEMP 99.2; O2SAT 99
[2024-11-20] MEDS: OSELTAMIVIR 75 MG CAP PO SCH (22:05)
[2024-11-20] MEDS: metroNIDAZOLE 500MG/100ML 100 ML IV SCH (22:44)
[2024-11-20] MEDS: CEFEPIME 1GM/ 50ML 50 ML IV SCH (22:45)
[2024-11-21] VITALS (8 sets, daily range): BP systolic 94–110; BP diastolic 56–71; PULSE 49–95; RESP 16–18; TEMP 98.2–98.6; O2SAT 96–100
[2024-11-21] MEDS: ONDANSETRON HCL 4 MG/2 ML VIAL IV PRN (02:51)
[2024-11-21] MEDS: ACETAMINOPHEN 325 MG TAB PO PRN (02:55)
[2024-11-21] MEDS: guaiFENesin-DM 100/10mg/5ml SYR PO ONE (03:33)
[2024-11-21 06:02] LABS: Alanine Aminotransferase 11 U/L (7-40); Albumin 3.6 g/dL (3.2-4.8); Anion Gap 7 (5-15); Aspartate Aminotransferase 16 U/L (13-40); Carbon Dioxide 23 mmol/L (20-31); Glucose 100 mg/dL (74-106); Magnesium 1.9 mg/dL (1.6-2.6); Potassium 3.7 mmol/L (3.5-5.1); Sodium 143 mmol/L (136-145); Total Protein 5.7 g/dL (5.7-8.2)
[2024-11-21 06:03] LABS: Bilirubin, Direct 0.2 mg/dL (<0.3); Bilirubin, Total 0.3 mg/dL (0.2-1.0)
[2024-11-21 06:04] LABS: % Iron Saturation 8.5 % (15-50)
[2024-11-21 06:10] LABS: Alkaline Phosphatase 46 U/L (46-116); BUN/Creatinine Ratio 9.4 (10.0-20.0); Basophils # (auto) 0 10 ^3/uL (0-0.2); Basophils % (auto) 0.1 % (0.0-2.0); Blood Urea Nitrogen < 5 mg/dL (9-23); Calcium 8.7 mg/dL (8.7-10.4); Chloride 113 mmol/L (98-107); Eosinophils # (auto) 0 10 ^3/uL (0-0.8); Eosinophils % (auto) 0.8 % (0.0-7.0); Hematocrit 34.4 % (36.0-46.0); Hemoglobin 11.4 g/dL (12.2-16.2); Lymphocytes # (auto) 1.6 10 ^3/uL (0.4-5.4); Lymphocytes % (auto) 40.2 % (10.0-50.0); Mean Corpuscular Hemoglobin 26.4 pg (28.0-32.0); Mean Corpuscular Hgb Conc. 33.1 g/dL (32.0-36.0); Mean Corpuscular Volume 79.8 fL (80.0-100.0); Monocytes # (auto) 0.3 10 ^3/uL (0-1.3); Monocytes % (auto) 7.4 % (0.0-12.0); Neutrophils % (auto) 51.5 % (37.0-80.0); Nucleated Red Blood Cells % 0.1 %; Platelet Count (auto) 86 10^3/uL (140-450); Red Blood Cells 4.32 10^6/uL (4.0-5.20); Red Cell Distribution Width 14.5 % (11.8-14.3); White Blood Cell 3.9 10^3/uL (4.4-10.8)
[2024-11-21 09:17] LABS: Erythrocyte Sedimentation Rate 8 mm/hr (0-20)
[2024-11-21] MEDS: MULTIPLE VITAMIN TAB PO SCH (09:35)
[2024-11-21 10:19] LABS: Hepatitis A Ab IgM Negative; Hepatitis B Core IgM Negative (Negative); Hepatitis B Surface Antigen Negative (Negative); Hepatitis C Antibody Negative (Negative)
[2024-11-21] MEDS: DOXYCYCLINE 100MG/100ML 100 ML IV ONE (12:37)
--- NOTE | 2024-11-21 15:13 | DVHPNRES ---
Progress Note Date Seen: Nov 21, 2024 Resident Creating Document: BRITTANY ROBBINS RESIDENT Medical Necessity Reason Pt with a Central, PICC or Fol: No Subjective Review of Systems Patient is a 34-year-old female with no past medical history who was sent by her PCP due to low blood pressure. According to the patient, she has been having a stomachache along with a headache for the past 2 weeks, on Tuesday she also started experiencing a dry cough which was persistent in nature. Denies any nausea, vomiting, diarrhea or similar symptoms before in the past. Patient notes that eating or drinking worsens her abdominal pain, denies any relieving factors. Of note, patient returned from [facility] 6 weeks ago. Denies any sick contacts. On review of systems patient is complaining of fatigue, fever, chills, cough, shortness of breath, photosensitivity, dysuria. CT abdomen pelvis was largely unremarkable, she lab workup revealed leukopenia with a WBC 3.5, hemoglobin 11.8, thrombocytopenia with a platelet 135> 96, serum lipase was 57, TSH 6.39, free T3 for 0.88, free T3 0.97.. Influenza type B positive. Urinalysis ketone 2+. No evidence of acute abdominopelvic abnormalities. CT head- No intracranial abnormality. CXR no acute cardiopulmonary disease. PMH-none PSH- appendectomy Allergy- NKDA Personal History/ Social History- lives with family, denies alcoholism/drug abuse or smoking Patient was seen today at the bedside. Cardiovascular- deny acute chest pain or shortness of breath or cough or palpitation Respiratory denies cough or short of breath or wheezing Musculoskeletal-denies acute joint swelling or tenderness or redness Neurological- denies acute dysarthria, dysphagia, change in vision Psychiatry- denies depression or SI or HI Skin- denies acute rash or purpura Patient was seen today for clinical evaluation. Labs and chart reviewed. Patient reported her epigastric pain has improved, no nausea vomiting today. P atient reported she had dry cough overnight. Negative for hepatitis a and B, negative for HIV 1 and 2, negative for UTI. Blood culture no growth so far, uterine culture contaminated sample, MRSA screen negative. Patient is still leukocyte ertapenem and thrombocytopenic, no acute sign or symptom of bleeding, patient was soft BP, IV fluid bolus was given this morning. Patient was awake and alert and oriented, no epigastric tenderness today in the morning. Ordered thick and thin phlegm for malaria, ordered doxycycline 100 mg IV b.i.d.. Objective vital signs Vital Sign Date Time Temp Pulse Resp B/P (MAP) Pulse Ox O2 Delivery O2 Flow Rate FiO2 11/21/24 13:00 98.6 67 18 94/62 (73) 100 98.6 11/21/24 08:00 Nasal Cannula* 2 28 Total Intake and Output 11/20/24 11/20/24 11/21/24 15:00 23:00 07:00 Intake Total 650 ml 950 ml Balance 650 ml 950 ml medications Current Medications Medications Dose Ordered Sig/Truman Route Start Time Stop Time Status Last Admin Dose Admin Acetaminophen 325 mg Q4HP PRN PO 11/19/24 23:45 11/21/24 02:55 325 MG Pantoprazole Sodium 40 mg DAILY IV 11/20/24 10:00 11/21/24 09:35 40 MG Ergocalciferol 50,000 unit Q7D PO 11/20/24 10:00 11/20/24 12:59 50,000 UNIT Oseltamivir Phosphate 75 mg Q12HR PO 11/20/24 22:00 11/24/24 22:01 11/21/24 09:35 75 MG Sucralfate 1 gm QIDACHS PO 11/20/24 17:00 11/21/24 12:37 1 GM Cefepime HCl 50 ml @ 12.5 mls/hr Q8H IV 11/20/24 23:00 11/21/24 12:38 12.5 MLS/HR Metronidazole 100 ml @ 100 mls/hr Q8HR IV 11/20/24 22:00 11/21/24 06:07 100 MLS/HR Ondansetron HCl 4 mg Q6HPRN PRN IV 11/20/24 14:45 11/21/24 02:51 4 MG Multivitamins 1 tab DAILY PO 11/21/24 10:00 11/21/24 09:35 1 TAB Throat Lozenges 1 lani Q2HP PRN MT 11/21/24 03:15 Doxycycline Hyclate 100 ml @ 50 mls/hr Q12H IV 11/21/24 20:00 Examination General examination- awake, alert, orient HEENT- PEERLA, no acute nasal discharge Cardiovascular- S1-S2 audible, rate and rhythm regular, no murmur Respiratory- CTAB, no wheeze or rhonchi Gastrointestinal-nontender, bowel sound+. Nondistended Musculoskeletal-no acute joint swelling or tenderness or redness Lower extremity- no leg edema Neurological- crani al nerves intact, no acute dysarthria or dysphagia Psychiatry- denies depression or SI or HI Skin- no acute rash or purpura laboratory and microbiology Laboratory Tests 11/21/24 05:05 Test 11/21/24 05:05 Range/Units Serum Glucose 100 74-106 mg/dL Microbiology Date/Time Source Procedure Growth Status 11/20/24 09:30 Nose MRSA Screen - Final Complete 11/20/24 01:00 Voided Urine Urine Culture - Preliminary Resulted 11/19/24 17:35 Blood Blood Culture - Preliminary NO GROWTH AFTER 24 HOURS OF INCUBATION. Resulted Problem List/Assessment/Plan Problem List/Assessment/Plan Assessment and plan-Patient reported her epigastric pain has improved, no nausea vomiting today. Patient reported she had dry cough overnight. Negative for hepatitis a and B, negative for HIV 1 and 2, negative for UTI. Blood culture no growth so far, uterine culture contaminated sample, MRSA screen negative. Patient is still leukocyte ertapenem and thrombocytopenic, no acute sign or symptom of bleeding, patient was soft BP, IV fluid bolus was given this morning. Patient was awake and alert and oriented, no epigastric tenderness today in the morning. Ordered thick and thin phlegm for malaria, ordered doxycycline 100 mg IV b.i.d.. Sepsis due to gastroenteritis Gastroenteritis, infectious etiology likely Intravascular volume depletion Starvation ketosis Influenza B infection Pancytopenia Leukopenia Tachycardia Tachypnea Plan Continue cefepime as prescribed Continue Flagyl as prescribed Continue doxycycline as prescribed Continue pantoprazole as prescribed Continue sucralfate as prescribed Oseltamivir 75 mg p.o. q.12 hours Ergo cholecalciferol as prescribed Goals of care, Code status ; discussed with >15 minutes PUD prophylaxis: Pantoprazole DVT prophylaxis: Patient ambulating Plan discussed with Dr. Telles , nursing staff, Total time spent on patient evaluation, chart review, assessment and plan, discussion discussion >35 minutes Plan discussed with: Patient, Spouse, Other (RN) My Orders My Orders Orders - BRITTANY ROBBINS RESIDENT Procedure Category Date Status Time Multiple Vitamin PHA 11/21/24 In Process Tablet (Mvi Tab) 10:00 Benita Direct W/Reflex LAB 11/21/24 In Process To Comp. 04:00 Pathology LAB 11/21/24 Logged Miscellaneous Order 11:17 Doxycycline PHA 11/21/24 In Process 100mg/100ml 20:00 Regular Diet DIET 11/21/24 Transmitted Lunch Date of Service: Nov 21, 2024 Billing Provider: KEN CHANEL MD Common Visit Codes: [id number] INP/OBS CARE(HIGH) BRITTANY ROBBINS RESIDENT Nov 21, 2024 15:13 KEN CHANEL MD November 24, 2024 20:14
[2024-11-21] MEDS: THROAT LOZENGES(CEPASTAT) MT PRN (18:30)
[2024-11-21] MEDS: DOXYCYCLINE 100MG/100ML 100 ML IV SCH (20:02)
[2024-11-22] VITALS (8 sets, daily range): BP systolic 98–134; BP diastolic 59–72; PULSE 49–83; RESP 16–19; TEMP 97.7–98.6; O2SAT 94–100
[2024-11-22 05:41] LABS: Basophils # (auto) 0 10 ^3/uL (0-0.2); Basophils % (auto) 0.2 % (0.0-2.0); Eosinophils # (auto) 0.1 10 ^3/uL (0-0.8); Eosinophils % (auto) 1.5 % (0.0-7.0); Hemoglobin 11.3 g/dL (12.2-16.2); Lymphocytes # (auto) 1.8 10 ^3/uL (0.4-5.4); Lymphocytes % (auto) 52.4 % (10.0-50.0); Mean Corpuscular Hgb Conc. 34.2 g/dL (32.0-36.0); Mean Corpuscular Volume 78.8 fL (80.0-100.0); Monocytes # (auto) 0.2 10 ^3/uL (0-1.3); Monocytes % (auto) 6.7 % (0.0-12.0); Neutrophils # (auto) 1.3 10 ^3/uL (1.6-8.6); Neutrophils % (auto) 39.2 % (37.0-80.0); Platelet Count (auto) 95 10^3/uL (140-450); Red Blood Cells 4.19 10^6/uL (4.0-5.20); Red Cell Distribution Width 14.5 % (11.8-14.3); White Blood Cell 3.4 10^3/uL (4.4-10.8)
[2024-11-22 06:01] LABS: Alanine Aminotransferase 14 U/L (7-40); Albumin 3.6 g/dL (3.2-4.8); Anion Gap 7 (5-15); Calcium 8.8 mg/dL (8.7-10.4); Carbon Dioxide 24 mmol/L (20-31); Glucose 100 mg/dL (74-106); Sodium 143 mmol/L (136-145)
[2024-11-22 06:06] LABS: Alkaline Phosphatase 45 U/L (46-116); BUN/Creatinine Ratio 9.1 (10.0-20.0); Bilirubin, Total 0.3 mg/dL (0.2-1.0); Blood Urea Nitrogen < 5 mg/dL (9-23); Chloride 112 mmol/L (98-107); Potassium 3.4 mmol/L (3.5-5.1); Total Protein 5.7 g/dL (5.7-8.2)
[2024-11-22 06:11] LABS: Aspartate Aminotransferase 17 U/L (13-40)
[2024-11-22] MEDS: POTASSIUM CHL 20 Meq TABLET PO ONE (08:22)
[2024-11-22 13:07] LABS: Anti-Nuclear Antibody Direct Negative (Negative)
--- NOTE | 2024-11-22 18:28 | DVHPNRES ---
Progress Note Date Seen: November 22, 2024 Resident Creating Document: BRITTANY ROBBINS Medical Necessity Reason Pt with a Central, PICC or Fol: No Subjective Review of Systems Patient is a 34-year-old female with no past medical history who was sent by her PCP due to low blood pressure. According to the patient, she has been having a stomachache along with a headache for the past 2 weeks, on Tuesday she also started experiencing a dry cough which was persistent in nature. Denies any nausea, vomiting, diarrhea or similar symptoms before in the past. Patient notes that eating or drinking worsens her abdominal pain, denies any relieving factors. Of note, patient returned from [facility] 6 weeks ago. Denies any sick contacts. On review of systems patient is complaining of fatigue, fever, chills, cough, shortness of breath, photosensitivity, dysuria. CT abdomen pelvis was largely unremarkable, she lab workup revealed leukopenia with a WBC 3.5, hemoglobin 11.8, thrombocytopenia with a platelet 135> 96, serum lipase was 57, TSH 6.39, free T3 for 0.88, free T3 0.97.. Influenza type B positive. Urinalysis ketone 2+. No evidence of acute abdominopelvic abnormalities. CT head- No intracranial abnormality. CXR no acute cardiopulmonary disease. PMH-none PSH- appendectomy Allergy- NKDA Personal History/ Social History- lives with family, denies alcoholism/drug abuse or smoking Patient was seen today at the bedside. Cardiovascular- deny acute chest pain or shortness of breath or cough or palpitation Respiratory denies cough or short of breath or wheezing Musculoskeletal-denies acute joint swelling or tenderness or redness Neurological- denies acute dysarthria, dysphagia, change in vision Psychiatry- denies depression or SI or HI Skin- denies acute rash or purpura Patient was seen today for clinical evaluation. Labs and chart reviewed. Patient was seen today for clinical evaluation. Labs and chart reviewed. Patient is platelet count going up a little bit, patient was still leukopenic. No fever or abdominal pain today. Blood culture no growth so far, MRSA negative, plan is to continue current management. Objective vital signs Vital Sign Date Time Temp Pulse Resp B/P (MAP) Pulse Ox O2 Delivery O2 Flow Rate FiO2 11/22/24 17:29 98.6 53 19 109/72 (84) 100 98.6 11/22/24 08:00 Room Air* 0 21 Total Intake and Output 11/21/24 11/21/24 11/22/24 15:00 23:00 07:00 Intake Total 50 ml 1000 ml 850 ml Balance 50 ml 1000 ml 850 ml medications Current Medications Medications Dose Ordered Sig/Truman Route Start Time Stop Time Status Last Admin Dose Admin Acetaminophen 325 mg Q4HP PRN PO 11/19/24 23:45 11/21/24 02:55 325 MG Pantoprazole Sodium 40 mg DAILY IV 11/20/24 10:00 11/22/24 08:21 40 MG Ergocalciferol 50,000 unit Q7D PO 11/20/24 10:00 11/20/24 12:59 50,000 UNIT Oseltamivir Phosphate 75 mg Q12HR PO 11/20/24 22:00 11/24/24 22:01 11/22/24 08:22 75 MG Sucralfate 1 gm QIDACHS PO 11/20/24 17:00 11/22/24 16:38 1 GM Cefepime HCl 50 ml @ 12.5 mls/hr Q8H IV 11/20/24 23:00 11/22/24 15:00 12.5 MLS/HR Metronidazole 100 ml @ 100 mls/hr Q8HR IV 11/20/24 22:00 11/22/24 13:26 100 MLS/HR Ondansetron HCl 4 mg Q6HPRN PRN IV 11/20/24 14:45 11/21/24 02:51 4 MG Multivitamins 1 tab DAILY PO 11/21/24 10:00 11/22/24 08:22 1 TAB Throat Lozenges 1 yun Q2HP PRN MT 11/21/24 03:15 11/21/24 23:15 1 YUN Doxycycline Hyclate 100 ml @ 50 mls/hr Q12H IV 11/21/24 20:00 11/22/24 08:22 50 MLS/HR Examination General examination- awake, alert, orient HEENT- PEERLA, no acute nasal discharge Cardiovascular- S1-S2 audible, rate and rhythm regular, no murmur Respiratory- CTAB, no wheeze or rhonchi Gastrointestinal-nontender, bowel sound+. Nondistended Musculoskeletal-no acute joint swelling or tenderness or redness Lower extremity- no leg edema Neurological- crani al nerves intact, no acute dysarthria or dysphagia Psychiatry- denies depression or SI or HI Skin- no acute rash or purpura laboratory and microbiology Laboratory Tests 11/22/24 05:11 Test 11/22/24 05:11 Range/Units Serum Glucose 100 74-106 mg/dL Microbiology Date/Time Source Procedure Growth Status 11/20/24 09:30 Nose MRSA Screen - Final Complete 11/20/24 01:00 Voided Urine Urine Culture - Final Complete 11/19/24 17:35 Blood Blood Culture - Preliminary NO GROWTH AFTER 72 HOURS OF INCUBATION. Resulted Problem List/Assessment/Plan Problem List/Assessment/Plan Assessment and plan-Patient reported her epigastric pain has improved, no nausea vomiting today. Patient reported she had dry cough overnight. Negative for hepatitis a and B, negative for HIV 1 and 2, negative for UTI. Blood culture no growth so far, uterine culture contaminated sample, MRSA screen negative. Patient is still leukocyte ertapenem and thrombocytopenic, no acute sign or symptom of bleeding, patient was soft BP, IV fluid bolus was given this morning. Patient was awake and alert and oriented, no epigastric tenderness today in the morning. Ordered thick and thin phlegm for malaria, ordered doxycycline 100 mg IV b.i.d.. Sepsis due to gastroenteritis Gastroenteritis, infectious etiology likely Intravascular volume depletion Starvation ketosis Influenza B infection Pancytopenia Leukopenia Tachycardia Tachypnea Plan Continue cefepime as prescribed Continue Flagyl as prescribed Continue doxycycline as prescribed Continue pantoprazole as prescribed Continue sucralfate as prescribed Oseltamivir 75 mg p.o. q.12 hours Ergo cholecalciferol as prescribed Goals of care, Code status ; discussed with >15 minutes PUD prophylaxis: Pantoprazole DVT prophylaxis: Patient ambulating Plan discussed with Dr. Telles , nursing staff, Total time spent on patient evaluation, chart review, assessment and plan, discussion discussion >35 minutes Plan discussed with: Patient, Spouse (RN), Other Dietary Evaluation Review Comments: 1. Continue Vegetarian diet per pt preference 2. Encourage continued good oral intakes >75% of meals 3. Appreciate daily wt's to trend possible gains/losses Expected Outcomes/Goals: Maintain adequate nutrition. Date of Service: November 22, 2024 Billing Provider: KEN CHANEL MD Common Visit Codes: [id number] INP/OBS CARE(HIGH) BABU,MOHAMMED RESIDENT November 22, 2024 18:28 KEN CHANEL MD November 24, 2024 20:46
[2024-11-23 01:00] VITALS: BP 119/59; PULSE 75; RESP 18; TEMP 98.4; O2SAT 99
[2024-11-23 05:00] VITALS: BP 89/59; PULSE 58; RESP 17; TEMP 98; O2SAT 98
[2024-11-23 06:50] LABS: Basophils # (auto) 0 10 ^3/uL (0-0.2); Eosinophils # (auto) 0.1 10 ^3/uL (0-0.8); Monocytes # (auto) 0.4 10 ^3/uL (0-1.3); Nucleated Red Blood Cells % 0.1 %; White Blood Cell 4.7 10^3/uL (4.4-10.8)
[2024-11-23 06:52] LABS: Basophils % (auto) 0.2 % (0.0-2.0); Eosinophils % (auto) 1.9 % (0.0-7.0); Lymphocytes % (auto) 42.3 % (10.0-50.0); Mean Corpuscular Hemoglobin 26.9 pg (28.0-32.0); Mean Corpuscular Hgb Conc. 34.2 g/dL (32.0-36.0); Mean Corpuscular Volume 78.7 fL (80.0-100.0); Monocytes % (auto) 9.1 % (0.0-12.0); Neutrophils # (auto) 2.2 10 ^3/uL (1.6-8.6); Neutrophils % (auto) 46.5 % (37.0-80.0); Platelet Count (auto) 116 10^3/uL (140-450); Red Blood Cells 4.45 10^6/uL (4.0-5.20); Red Cell Distribution Width 14.7 % (11.8-14.3)
[2024-11-23 07:06] LABS: Albumin 3.7 g/dL (3.2-4.8); Alkaline Phosphatase 49 U/L (46-116); Anion Gap 8 (5-15); Aspartate Aminotransferase 28 U/L (13-40); Calcium 9.1 mg/dL (8.7-10.4); Carbon Dioxide 23 mmol/L (20-31); Glucose 95 mg/dL (74-106); Potassium 3.6 mmol/L (3.5-5.1); Sodium 143 mmol/L (136-145); Total Protein 5.9 g/dL (5.7-8.2)
[2024-11-23 07:07] LABS: Bilirubin, Total 0.4 mg/dL (0.2-1.0)
[2024-11-23 07:15] LABS: Blood Urea Nitrogen < 5 mg/dL (9-23); Chloride 112 mmol/L (98-107)
[2024-11-23 07:31] LABS: Alanine Aminotransferase 26 U/L (7-40)
[2024-11-23 08:00] VITALS: PULSE 53; PULSE 72; RESP 18
[2024-11-23 09:00] VITALS: BP 105/66; PULSE 62; RESP 17; TEMP 97.9; O2SAT 100
[2024-11-23 13:00] VITALS: BP 98/64; PULSE 71; RESP 15; TEMP 98.2; O2SAT 99
--- NOTE | 2024-11-23 14:31 | DVHDSRES ---
Discharge Summary Date of Admission Resident Creating Document: BRITTANY ROBBINS RESIDENT Nov 19, 2024 at 23:35 Date of Discharge: November 23, 2024 Admitting Diagnosis Sepsis due to underlying gastroenteritis/or pancreatitis or drinking Labs/Diagnostic Data: Laboratory Results Test 11/23/24 05:20 11/21/24 05:05 11/20/24 05:39 11/20/24 01:00 White Blood Count 4.7 10^3/uL (4.4-10.8) Red Blood Count 4.45 10^6/uL (4.0-5.20) Hemoglobin 12.0 g/dL (12.2-16.2) Hematocrit 35.0 % (36.0-46.0) Mean Corpuscular Volume 78.7 fL (80.0-100.0) Mean Corpuscular Hemoglobin 26.9 pg (28.0-32.0) Mean Corpuscular Hemoglobin Concent 34.2 g/dL (32.0-36.0) Red Cell Distribution Width 14.7 % (11.8-14.3) Platelet Count 116 10^3/uL (140-450) Mean Platelet Volume 11.9 fL (6.9-10.8) Neutrophils (%) (Auto) 46.5 % (37.0-80.0) Lymphocytes (%) (Auto) 42.3 % (10.0-50.0) Monocytes (%) (Auto) 9.1 % (0.0-12.0) Eosinophils (%) (Auto) 1.9 % (0.0-7.0) Basophils (%) (Auto) 0.2 % (0.0-2.0) Neutrophils # (Auto) 2.2 10 ^3/uL (1.6-8.6) Lymphocytes # (Auto) 2.0 10 ^3/uL (0.4-5.4) Monocytes # (Auto) 0.4 10 ^3/uL (0-1.3) Eosinophils # (Auto) 0.1 10 ^3/uL (0-0.8) Basophils # (Auto) 0 10 ^3/uL (0-0.2) Nucleated Red Blood Cells 0.1 % Sodium Level 143 mmol/L (136-145) Potassium Level 3.6 mmol/L (3.5-5.1) Chloride Level 112 mmol/L (98-107) Carbon Dioxide Level 23 mmol/L (20-31) Anion Gap 8 (5-15) Blood Urea Nitrogen < 5 mg/dL (9-23) Creatinine 0.50 mg/dL (0.550-1.02) Glomerular Filtration Rate Calc 126 mL/min (>90) BUN/Creatinine Ratio 10.0 (10.0-20.0) Serum Glucose 95 mg/dL (74-106) Calcium Level 9.1 mg/dL (8.7-10.4) Magnesium Level 2.0 mg/dL (1.6-2.6) Total Bilirubin 0.4 mg/dL (0.2-1.0) Aspartate Amino Transferase (AST) 28 U/L (13-40) Alanine Aminotransferase (ALT) 26 U/L (7-40) Alkaline Phosphatase 49 U/L (46-116) Total Protein 5.9 g/dL (5.7-8.2) Albumin 3.7 g/dL (3.2-4.8) Erythrocyte Sedimentation Rate 8 mm/hr (0-20) Iron Level 27 ug/dL (50-170) Total Iron Binding Capacity 316 ug/dL (250-425) Percent Iron Saturation 8.5 % (15-50) Ferritin 13.6 ng/mL (10-291) Direct Bilirubin 0.2 mg/dL (<0.3) C-Reactive Protein High Sensitivity 0.71 mg/dL (<1.0) Anti-Nuclear Antibody Screen Negative (Negative) Hepatitis A IgM Antibody Negative Hepatitis B Surface Antigen Negative (Negative) Hepatitis B Core IgM Antibody Negative (Negative) Hepatitis C Antibody Negative (Negative) HIV (1&2) Antibody Negative (Negative) Triglycerides Level 82 mg/dL (< 150) Cholesterol Level 118 mg/dL (< 200) LDL Cholesterol 72 mg/dL (< 100) HDL Cholesterol 31 mg/dL (40-59) Vitamin B12 Level 203 pg/mL (211-911) Vitamin D 25-Hydroxy 8.4 ng/mL (30.0-100) Folic Acid 12.17 ng/mL (>5.38) Thyroid Stimulating Hormone (TSH) 6.39 uIU/mL (0.55-4.78) Free Thyroxine (T4) Calculated 0.88 ng/dL (0.89-1.76) Total Triiodothyronine (TT3) 0.97 ng/mL (0.60-1.81) Urine Color Yellow (Yellow) Urine Clarity Clear (Clear) Urine pH 6.0 (5.0-9.0) Urine Specific [place] 1.019 (1.001-1.035) Urine Protein Negative (Negative) Urine Ketones 2+ (Negative) Urine Blood 2+ /uL (Negative) Urine Nitrite Negative (Negative) Urine Bilirubin Negative (Negative) Urine Urobilinogen Normal mg/dL (Negative) Urine Leukocyte Esterase Trace /uL (Negative) Urine RBC 5 /hpf (0 - 4) Urine Microscopic WBC 6 /HPF (0-5) Urine Squamous Epithelial Cells Few /hpf (<5) Urine Bacteria None seen /hpf (None Seen) Urine Mucus Few (None Seen) Urine Glucose Normal mg/dL (Normal) Urine Opiates Screen Neg (NEGATIVE) Urine Fentanyl Screen Neg (NEGATIVE) Urine Barbiturates Screen Neg (NEGATIVE) Urine Phencyclidine Screen Neg (NEGATIVE) Urine Amphetamines Screen Neg (NEGATIVE) Urine Benzodiazepines Screen Neg (NEGATIVE) Urine Cocaine Screen Neg (NEGATIVE) Urine Cannabinoids Screen Neg (NEGATIVE) Test 11/20/24 00:48 11/19/24 23:50 11/19/24 19:04 11/19/24 17:35 Influenza Type A Antigen Negative (Negative) Influenza Type B Antigen Positive (Negative) SARS-CoV-2 Antigen (Rapid) Negative (NEGATIVE) Lactic Acid Level 0.6 mmol/L (0.4-2.0) Troponin I High Sensitivity < 3 ng/L (</=34) Differential Total Cells Counted 100.0 (100) Neutrophils % (Manual) 39 (37.0-80.0) Band Neutrophils % (Manual) 4 Lymphocytes % (Manual) 43 (10.0-50.0) Monocytes % (Manual) 12 (0-12) Eosinophils % (Manual) 2 (0-7) Basophils % (Manual) 0 (0.0-2.0) Metamyelocytes % (manual) 0 Myelocytes % (Manual) 0 Promyelocytes % (Manual) 0 Blast Cells % (Manual) 0 Reactive Lymphocytes 0 Platelet Estimate Decreased Large Platelets Few Lipase 57 U/L (12-53) Beta HCG, Quantitative 0.3 mIU/mL (1.5-4.2) Test 11/19/24 15:44 POC Glucose 95 mg/dl (70-106) Other Laboratory Tests 11/23/24 05:20 Brief Hx & Hospital Course: Patient is a 34-year-old female with no past medical history who was sent by her PCP due to low blood pressure. According to the patient, she has been having a stomachache along with a headache for the past 2 weeks, on Tuesday she also started experiencing a dry cough which was persistent in nature. Denies any nausea, vomiting, diarrhea or similar symptoms before in the past. Patient notes that eating or drinking worsens her abdominal pain, denies any relieving factors. Of note, patient returned from [facility] 6 weeks ago. Denies any sick contacts. On review of systems patient is complaining of fatigue, fever, chills, cough, shortness of breath, photosensitivity, dysuria. CT abdomen pelvis was largely unremarkable, she lab workup revealed leukopenia with a WBC 3.5, hemoglobin 11.8, thrombocytopenia with a platelet 135> 96, serum lipase was 57, TSH 6.39, free T3 for 0.88, free T3 0.97.. Influenza type B positive. Urinalysis ketone 2+. No evidence of acute abdominopelvic abnormalities. CT head- No intracranial abnormality. CXR no acute cardiopulmonary disease. Hospital course-Patient is a 34-year-old female with no past medical history who was sent by her PCP due to low blood pressure. According to the patient, she has been having a stomachache along with a headache for the past 2 weeks, on Tuesday she also started experiencing a dry cough which was persistent in nature. Denies any nausea, vomiting, diarrhea or similar symptoms before in the past. Patient notes that eating or drinking worsens her abdominal pain, denies any relieving factors. Of note, patient returned from [facility] 6 weeks ago. Denies any sick contacts. On review of systems patient is complaining of fatigue, fever, chills, cough, shortness of breath, photosensitivity, dysuria. CT abdomen pelvis was largely unremarkable, she lab workup revealed leukopenia with a WBC 3.5, hemoglobin 11.8, thrombocytopenia with a platelet 135> 96, serum lipase was 57, TSH 6.39, free T3 for 0.88, free T3 0.97.. Influenza type B positive. Urinalysis ketone 2+. No evidence of acute abdominopelvic abnormalities. CT head- No intracranial abnormality. CXR no acute cardiopulmonary disease. Patient was treated with IV antibiotic cefepime, doxycycline, oseltamivir and Flagyl. Patient had leukopenia and thrombocytopenia which resolved with the conservative management. Patient's symptoms improved. Patient's vitals were stable gradually. Patient is being discharged home with Augmentin b.i.d., patient was advised to follow up with the primary care physician in 1 week with a report of peripheral blood smear and thick and blood phlegm for melena. Patient's meds were sent to the pharmacy electronically. Patient was hemodynamically stable on discharge. Assessment Sepsis due to gastroenteritis Gastroenteritis, infectious etiology likely Intravascular volume depletion Starvation ketosis Influenza B infection Pancytopenia Leukopenia Tachycardia Tachypnea Plan Augmentin 500 mg p.o. b.i.d. for 5 days Pantoprazole 40 mg p.o. daily for 2 weeks Sucralfate 1 g t.i.d. for 2 weeks Oseltamivir 75 mg p.o. b.i.d. for 2 days Please follow up with the primary care physician in 1 week with the lab report of peripheral blood smear and thick and thin failed for malaria. Operations or Procedures [place] [address] Ph: [phone] DIAGNOSTIC IMAGING Diagnostic Imaging Report : [id number] Signed PATIENT: JUAN GEE ACCT: [id number] UNIT: [id number] : 1990 LOC: ER ROOM / BED: / AGE / SEX: 34 / F ADM STATUS: REG ER SERVICE [id number] ORDERING PHYSICIAN: VIRGIL SPENCER MD PROCEDURE(s): ABPL - CT AB PEL WO CON-NO ORAL OR IV REASON: abdominal pain, nausea, hypotension ORDER NUMBER(s): [id number], ACCESSION NUMBER(s): [id number] Exam: CT CT AB PEL WO CON-NO ORAL OR IV History: abdominal pain, nausea, hypotension Comparison Study: None available at time of dictation. Technique: Multidetector CT of the abdomen and pelvis without contrast. Axial, coronal and sagittal multiplanar reformats were performed by the technologist on a separate workstation. Radiation Dose Information: CT Dose: CTDI volume is mGy. Dose-length product is mGy*cm Findings: The lung bases are clear. Partially visualized heart is unremarkable. Mild splenomegaly. Otherwise, liver, spleen, gallbladder, pancreas and adrenal glands unremarkable. Kidneys, ureters and urinary bladder unremarkable. Fibroid uterus. Otherwise, Uterus and adnexa unremarkable. Stomach is unremarkable. Small bowel loops unremarkable. Appendix is unremarkable. Small to moderate amount of fecal material within the colon. Mild rectal wall thickening which is most likely from inadequate distension. No evidence of intraperitoneal free air or free fluid. No evidence of aortic aneurysm. Flattening the IVC which may be from volume loss. No significant lymphadenopathy. Tiny fat containing umbilical hernia. No destructive osseous lesions are noted. Sclerotic focus of the left femoral head which may represent a bone island with a blastic lesion not completely excluded. IMPRESSION: No evidence of acute abdominopelvic abnormalities. ATED BY: LILY MAGDALENO DO DICTATED DATE/TIME: 11/19/241929 SIGNED BY: LILY MAGDALENO DO SIGNED DATE/TIME: 11/19/241929 CC: [place] [address] Ph: [phone] DIAGNOSTIC IMAGING Diagnostic Imaging Report : [id number] Signed PATIENT: JUAN GEE ACCT: [id number] UNIT: [id number] : 1990 LOC: ER ROOM / BED: / AGE / SEX: 34 / F ADM STATUS: REG ER SERVICE 14 ORDERING PHYSICIAN: VIRGIL SPENCER MD PROCEDURE(s): HWOCT - HEAD WITHOUT CONTRAST REASON: severe occipital headache ORDER NUMBER(s): [id number], ACCESSION NUMBER(s): [id number] CT HEAD WITHOUT CONTRAST INDICATION: severe occipital headache COMPARISON: None TECHNIQUE: CT of the head without intravenous contrast. RADIATION DOSE: CTDIvol: mGy, DLP: mGy*cm FINDINGS: There is no evidence of intracranial hemorrhage, infarct, extra-axial collection, mass effect, midline shift, herniation or hydrocephalus. The ventricles, sulci and cisterns are normal. The roth-white differentiation is normal. Mucus retention cyst in right maxillary sinus, mild mucosal thickening in left maxillary and bilateral ethmoid sinuses. Mastoid air cells and middle ear cavities are clear. Soft tissues and osseous structures are unremarkable. IMPRESSION: No intracranial abnormality. ATED BY: PHIL ANTONY MD DICTATED DATE/TIME: 11/19/241921 SIGNED BY: PHIL ANTONY MD SIGNED DATE/TIME: 11/19/241921 CC: [place] [address] Ph: [phone] DIAGNOSTIC IMAGING Diagnostic Imaging Report : [id number] Signed PATIENT: JUAN GEE KACLARKECCT: [id number] UNIT: [id number] : 1990 LOC: OVERFLOW ROOM / BED: [address] [place] [address] AGE / SEX: 34 / F ADM STATUS: ADM IN SERVICE ORDERING PHYSICIAN: FELECIA THORNTON PROCEDURE(s): CXR1 - CHEST XRAY 1 VIEW REASON: persistent cough ORDER NUMBER(s): [id number], ACCESSION NUMBER(s): [id number] CHEST RADIOGRAPH Indication: persistent cough Technique: Single frontal view of the chest was obtained Comparison: None FINDINGS: Lines and Tubes: None Lungs: No focal consolidation. Pleura: No effusion. No pneumothorax. Cardiomediastinal contours: Unremarkable Bones: No acute osseous abnormality. IMPRESSION: 1. No acute cardiopulmonary disease. ATED BY: CONG EUGENE MD DICTATED DATE/TIME: 11/20/24607 SIGNED BY: CONG EUGENE MD SIGNED DATE/TIME: 11/20/24607 CC: Condition at Discharge: Stable Final Diagnosis/Problems List Sepsis due to gastroenteritis Gastroenteritis, infectious etiology likely Intravascular volume depletion Starvation ketosis Influenza B infection Pancytopenia Leukopenia Tachycardia Tachypnea Discharge Disposition: Home Discharge Instruct/Medications Follow Up/Referral: Augmentin 500 mg p.o. b.i.d. for 5 days Pantoprazole 40 mg p.o. daily for 2 weeks Sucralfate 1 g t.i.d. for 2 weeks Oseltamivir 75 mg p.o. b.i.d. for 2 days Please follow up with the primary care physician in 1 week with the lab report of peripheral blood smear and thick and thin failed for malaria. Medications: Augmentin 500 mg p.o. b.i.d. for 5 days Pantoprazole 40 mg p.o. daily for 2 weeks Sucralfate 1 g t.i.d. for 2 weeks Oseltamivir 75 mg p.o. b.i.d. for 2 days Please follow up with the primary care physician in 1 week with the lab report of peripheral blood smear and thick and thin failed for malaria. Discharge Statement: "Patient was advised to return to the ER or call 911 if any headaches, dizziness, shortness of breath, chest pain, abdominal pain, bleeding, fevers, or worsening of medical condition. Patient was counseled about treatment plan, medications, possible side effects, patientverbalized understanding. All questions were answered to the best of my ability. This discharge took greater then 30 minutes in planning, reviewing documentation, counseling the patient, and discussing with other team members." ASSESSMENT ASSESSMENT Assessment BRITTANY ROBBINS RESIDENT November 23, 2024 14:31
[2024-11-23] MEDS ORDERED: AMOX500T86 PO (14:34)
[2024-11-23] MEDS ORDERED: OSEL75CA17 PO (14:34)
[2024-11-23] MEDS ORDERED: PANT40T PO (14:34)
[2024-11-23] MEDS ORDERED: SUCR1TAB31 PO (14:34)
== END 2024-11-23 17:49 | disposition home or self-care (01) | DRG 871 ==
LOC: ER 15:31 → OVERFLOW 23:35 → TELE-EAST 11-20 10:27
PROVIDERS: ADMIT Internal Medicine; ATTEND Internal Medicine
DX: A41.9 Sepsis, unspecified organism (principal); K85.90 Acute pancreatitis without necrosis or infection, unspecified; D61.818 Other pancytopenia; A09 Infectious gastroenteritis and colitis, unspecified; E87.6 Hypokalemia; E55.9 Vitamin D deficiency, unspecified; E03.9 Hypothyroidism, unspecified; E86.9 Volume depletion, unspecified; E88.89 Other specified metabolic disorders; M27.40 Unspecified cyst of jaw; T73.0XXA Starvation, initial encounter; J10.1 Influenza due to other identified influenza virus with other respiratory manifestations; Z79.1 Long term (current) use of non-steroidal anti-inflammatories (NSAID); Z79.899 Other long term (current) drug therapy; X58.XXXA Exposure to other specified factors, initial encounter
CPT/HCPCS: 36415; 70450; 71045; 74176; 80053; 80061; 80074; 80076; 80307; 81001; 82306; 82607; 82728; 82746; 82962; 83540; 83550; 83605; 83690; 83735; 84439; 84443; 84480; 84484; 84702; 85007; 85025; 85027; 85652; 86038; 86141; 86703; 86803; 87040; 87081; 87086; 87426; 87804; 96361; 96374; G0378; J2405; J2470; J2543; J3490

== ENCOUNTER 2025-01-01 08:24 | Outpatient (CLI) | payer MEDICAID, BC ==
[~2025-01-01 08:24] MED LIST changes: +AMOX500T86 PO; +OSEL75CA17 PO; +PANT40T PO; +SUCR1TAB31 PO
[2025-01-01 08:48] LABS: Basophils # (auto) 0 10 ^3/uL (0-0.2); Basophils % (auto) 0.5 % (0.0-2.0); Eosinophils # (auto) 0.1 10 ^3/uL (0-0.8); Hemoglobin 12.3 g/dL (12.2-16.2); Lymphocytes # (auto) 1.9 10 ^3/uL (0.4-5.4); Monocytes # (auto) 0.2 10 ^3/uL (0-1.3); Nucleated Red Blood Cells % 0.1 %; Platelet Count (auto) 192 10^3/uL (140-450); White Blood Cell 4.8 10^3/uL (4.4-10.8)
[2025-01-01 08:53] LABS: Eosinophils % (auto) 2.4 % (0.0-7.0); Hematocrit 36.9 % (36.0-46.0); Lymphocytes % (auto) 38.8 % (10.0-50.0); Mean Corpuscular Hemoglobin 26.5 pg (28.0-32.0); Mean Corpuscular Hgb Conc. 33.3 g/dL (32.0-36.0); Mean Corpuscular Volume 79.6 fL (80.0-100.0); Monocytes % (auto) 4.9 % (0.0-12.0); Neutrophils # (auto) 2.6 10 ^3/uL (1.6-8.6); Neutrophils % (auto) 53.4 % (37.0-80.0); Red Blood Cells 4.63 10^6/uL (4.0-5.20); Red Cell Distribution Width 14.5 % (11.8-14.3)
[2025-01-01 08:57] LABS: Urine Bacteria FEW /hpf (None Seen); Urine Blood Negative /uL (Negative); Urine Clarity Turbid (Clear); Urine Color Yellow (Yellow); Urine Hyaline Cast FEW /lpf (0 - 2); Urine Mucus FEW (None Seen); Urine Protein, UAD Negative (Negative); Urine Specific Gravity 1.025 (1.001-1.035); Urine Squamous Epithelial Cell MOD /hpf (<5); Urine Urobilinogen Normal (Negative); Urine WBC 1 /HPF (0-5)
[2025-01-01 09:08] LABS: Alanine Aminotransferase 17 U/L (7-40); Albumin 4.3 g/dL (3.2-4.8); Alkaline Phosphatase 70 U/L (46-116); Anion Gap 8 (5-15); BUN/Creatinine Ratio 17.6 (10.0-20.0); Bilirubin, Total 0.6 mg/dL (0.2-1.0); Blood Urea Nitrogen 12 mg/dL (9-23); Calcium 9.6 mg/dL (8.7-10.4); Carbon Dioxide 26 mmol/L (20-31); Cholesterol 200 mg/dL (< 200); Glucose 91 mg/dL (74-106); Potassium 4.5 mmol/L (3.5-5.1); Sodium 142 mmol/L (136-145); Total Protein 6.7 g/dL (5.7-8.2); Triglycerides 101 mg/dL (< 150)
[2025-01-01 09:15] LABS: Aspartate Aminotransferase 13 U/L (13-40); Chloride 108 mmol/L (98-107); HDL Cholesterol 67 mg/dL (40-59); LDL Cholesterol 115 mg/dL (< 100)
[2025-01-01 09:24] LABS: Erythrocyte Sedimentation Rate 5 mm/hr (0-20)
[2025-01-01 10:42] LABS: Free T4 (Free Thyroxine) 0.97 ng/dL (0.89-1.76)
[2025-01-02 06:06] LABS: Complement C3 108 mg/dL (82-167); Rheumatoid Arthritis Factor <10.0 IU/mL (<14.0)
[2025-01-02 08:07] LABS: Thyroid Peroxidase (TPO) Ab <9 IU/mL (0-34)
[2025-01-03 13:07] LABS: Actin (Smooth Muscle) Antibody 7 Units (0-19); Mitochondrial (M2) Antibody <20.0 Units (0.0-20.0)
[2025-01-03 14:07] LABS: Anti-Nuclear Antibody Direct Positive (Negative); Anti-dsDNA Antibody 11 IU/mL (0-9); Antiscleroderma-70 Antibody <0.2 AI (0.0-0.9); RNP Antibody 0.3 AI (0.0-0.9); Sjogren's Anti-SS-A Antibody <0.2 AI (0.0-0.9); Sjogren's Anti-SS-B Antibody <0.2 AI (0.0-0.9); Smith Antibody <0.2 AI (0.0-0.9)
== END 2025-01-01 17:00 | disposition home or self-care (01) ==
LOC: LAB 08:24
PROVIDERS: ATTEND Internal Medicine
DX: D69.6 Thrombocytopenia, unspecified (principal); R93.89 Abnormal findings on diagnostic imaging of other specified body structures; Z79.899 Other long term (current) drug therapy
CPT/HCPCS: 36415; 80053; 80061; 81001; 82607; 84439; 84443; 85025; 85652; 86160; 86225; 86235; 86376; 86431

== ENCOUNTER 2025-01-10 09:07 | Outpatient (CLI) | payer BC, MEDICAID ==
[2025-01-10 09:23] LABS: Basophils # (auto) 0 10 ^3/uL (0-0.2); Basophils % (auto) 0.4 % (0.0-2.0); Eosinophils # (auto) 0 10 ^3/uL (0-0.8); Hematocrit 37.3 % (36.0-46.0); Hemoglobin 12.4 g/dL (12.2-16.2); Lymphocytes # (auto) 1.7 10 ^3/uL (0.4-5.4); Lymphocytes % (auto) 37.6 % (10.0-50.0); Mean Corpuscular Hemoglobin 26.3 pg (28.0-32.0); Mean Corpuscular Hgb Conc. 33.1 g/dL (32.0-36.0); Mean Corpuscular Volume 79.3 fL (80.0-100.0); Monocytes # (auto) 0.3 10 ^3/uL (0-1.3); Neutrophils # (auto) 2.5 10 ^3/uL (1.6-8.6); Nucleated Red Blood Cells % 0.2 %; Platelet Count (auto) 198 10^3/uL (140-450); Red Blood Cells 4.71 10^6/uL (4.0-5.20); Red Cell Distribution Width 14.6 % (11.8-14.3); White Blood Cell 4.5 10^3/uL (4.4-10.8)
[2025-01-10 11:31] LABS: Leuteinizing Hormone 8.1 IU/L
[2025-01-10 11:57] LABS: Follicle Stimulating Hormone 2.92 IU/L (SEE BELOW)
== END 2025-01-10 17:00 | disposition home or self-care (01) ==
LOC: LAB 09:07
PROVIDERS: ATTEND Obstetrics & Gynecology
DX: N93.9 Abnormal uterine and vaginal bleeding, unspecified (principal)
CPT/HCPCS: 36415; 82670; 83001; 83002; 84403; 84443; 85025